=== PATIENT | male | born 1965 | race Two or more races ===

== ENCOUNTER 2020-05-28 19:41 | Inpatient (IN) | payer MEDICAID ==
[~2020-05-28] VITALS: Ht 172.7 cm; Wt 102.2 kg
[~2020-05-28 19:41] MED LIST: ASPI-728 PO
[2020-05-28] MEDS ORDERED: 0.9% SODIUM CHLORIDE 5 ML NEB SOLUTION NEB ONE (19:53)
[2020-05-28] MEDS ORDERED: AMIO200T68 PO (19:57)
[2020-05-28] MEDS ORDERED: LEVO750T68 PO (19:57)
[2020-05-28] MEDS ORDERED: INSLAN SQ (19:57)
[2020-05-28] MEDS ORDERED: PANT40VI14 IVP (19:57)
[2020-05-28] MEDS ORDERED: DIAZ5 PO (19:57)
[2020-05-28] MEDS ORDERED: CHOL100018 PO (19:57)
[2020-05-28] MEDS ORDERED: ASCO500 PO (19:57)
[2020-05-28] MEDS ORDERED: SULF-289 PO (19:57)
[2020-05-28] MEDS ORDERED: METO25 PO (19:57)
[2020-05-28] MEDS ORDERED: DOCU-275 PO (19:57)
[2020-05-28] MEDS ORDERED: IPRATROPIUM BROMIDE 0.5 MG/2.5 ML NEB SOLUTION NEB ONE (20:00)
[2020-05-28] MEDS ORDERED: ALBUTEROL SULFATE 5 MG/ML 20 ML NEB SOLN [BULK] NEB ONE (20:00)
[2020-05-28 20:28] LABS: ABG A-A DIFF O2 574.8 mmHg (10-20.0); ABG CARBOXYHEMOGLOBIN 2.3 % (0.0-1.5); ABG HCO3 40.5 mmol/L (22.0-26.0); ABG METHEMOGLOBIN 0.3 % (0.0-1.5); ABG OXYGEN SATURATION 94.6 % (95.0-98.0); ABG OXYHEMOGLOBIN 92.1 % (94.0-100.0); ABG PCO2 61 mmHg (35-45); ABG PH 7.463 (7.35-7.450); PO2, ARTERIAL BG 75.2 mmHg (84.0-92.0); SOURCE, BLOOD GAS ARTERIAL; TEMPERATURE, FAHRENHEIT, BG 99.8 FAHREN (96.0-98.6)
[2020-05-28 20:29] LABS: O2 DEVICE,BLOOD GAS VENTILATOR (ROOM AIR); PEEP,BG 8 cm H2O; SITE, BLOOD GAS LFT RADIAL; VT, ABG 550 ml
[2020-05-28 20:51] LABS: EOSINOPHILS % (AUTO) 0.9 % (1.0-6.0); HEMOGLOBIN 9.2 g/dL (13.5-17.5); MEAN CORPUSCULAR HEMOGLOBIN 30.2 pg (26.0-34.0); MEAN CORPUSCULAR HGB CONC 31.7 G/dL (31.0-37.0); MEAN CORPUSCULAR VOLUME 95 fL (80-100); MONOCYTES # (AUTO) 0.4 K/uL (0.1-1.0); MONOCYTES % (AUTO) 6.2 % (2.0-9.0); NEUTROPHILS # (AUTO) 4.6 K/uL (1.8-7.7); NEUTROPHILS % (AUTO) 75.9 % (40.0-70.0); PLATELET COUNT (AUTO) 126 K/uL (150-450); RED BLOOD CELL COUNT(AUTO) 3.04 MIL/uL (4.50-5.90); RED CELL DISTRIBUTION WIDTH 18.5 % (11.5-14.5)
[2020-05-28 21:11] LABS: ALANINE AMINOTRANSFERASE 40 U/L (12-78); ALBUMIN 2.3 g/dL (3.4-5.0); ALKALINE PHOSPHATASE 241 U/L (46-116); ASPARTATE AMINOTRANSFERASE 28 U/L (15-37); BILIRUBIN,TOTAL 1.3 mg/dL (0.1-1.0); CALCIUM, TOTAL 8.9 mg/dL (8.8-10.5); CHLORIDE 99 mmol/L (98-107); CREATINE KINASE, TOTAL ONLY 24 U/L (39-308); CREATININE 0.29 mg/dL (0.60-1.30); GLOMERULAR FILTR. RATE CALC > 60 mL/min (>60); GLUCOSE,RANDOM 113 mg/dL (70-110); POTASSIUM 4.5 mmol/L (3.5-5.1); SODIUM SERUM 139 mmol/L (136-145); TOTAL PROTEIN, SERUM 6.2 g/dL (6.4-8.2); UREA NITROGEN, BLOOD 22 mg/dL (7-18)
[2020-05-28 21:18] LABS: ANION GAP 2 mmol/L (8-16); CARBON DIOXIDE 38 mmol/L (22-29)
[2020-05-28 21:19] LABS: B-TYPE NATRIURETIC PEPTIDE 83 pg/mL (0-100)
[2020-05-28] MEDS ORDERED: CefTRIAXone 1 GM/DEXTROSE 50 ML IV ONE (21:30)
[2020-05-28] MEDS ORDERED: AZITHROMYCIN 500 MG/NS 250 ML IV ONE (21:30)
[2020-05-28] MEDS ORDERED: SODIUM CHLORIDE 0.9% 1,000 ML IV ONE (22:15)
[2020-05-28 23:16] LABS: GLUCOSE,POINT OF CARE 108 MG/DL (70-110)
[2020-05-28 23:57] LABS: APPEARANCE,URINE CLOUDY (CLEAR); BILIRUBIN,URINE NEGATIVE (NEGATIVE); GLUCOSE, URINE (UA) NEGATIVE (NEGATIVE); KETONES,URINE 15 mg/dL (NEGATIVE); LEUKOCYTE ESTERASE ,URINE NEGATIVE (NEGATIVE); NITRATE,URINE NEGATIVE (NEGATIVE); OCCULT BLOOD,URINE MODERATE (NEGATIVE); PH,URINE 8.5 (5.0-8.0); PROTEIN,URINE TRACE (NEGATIVE)
[2020-05-29] VITALS (8 sets, daily range): BP systolic 111–140; BP diastolic 64–84
[2020-05-29 00:11] LABS: BACTERIA,URINE Few /HPF (None Seen); WBC,URINE 0-2 /HPF (0-5)
[2020-05-29 00:12] LABS: SQUAMOUS EPITHELIAL CELL,UR Few /LPF (None Seen); YEAST,URINE Many /HPF (None Seen)
[2020-05-29] MEDS ORDERED: ONDANSETRON HCL 4 MG/2 ML VIAL IVP PRN (01:45)
[2020-05-29] MEDS ORDERED: RINGERS LACTATED IV SCH (02:00)
[2020-05-29] MEDS ORDERED: SODIUM CHLORIDE 0.9% 1,000 ML IV ONE (02:15)
[2020-05-29] MEDS ORDERED: ACETAMINOPHEN 650 MG/20.3 ML SOLUTION UDCUP GT ONE (02:15)
[2020-05-29 03:24] LABS: ABG A-A DIFF O2 538.3 mmHg (10-20.0); ABG BASE EXCESS 13.5 mmol/L (-2.0-3.0); ABG CARBOXYHEMOGLOBIN 1.2 % (0.0-1.5); ABG HCO3 35.7 mmol/L (22.0-26.0); ABG METHEMOGLOBIN 0.2 % (0.0-1.5); ABG OXYGEN CONTENT 11.9 mL/dL (15.0-23.0); ABG OXYGEN SATURATION 97.8 % (95.0-98.0); ABG OXYHEMOGLOBIN 96.4 % (94.0-100.0); ABG PCO2 56 mmHg (35-45); ABG PH 7.443 (7.35-7.450); ABG TOTAL HEMOGLOBIN 8.6 G/dL (12.0-18.0); PO2, ARTERIAL BG 118.1 mmHg (84.0-92.0); SOURCE, BLOOD GAS ARTERIAL; TEMPERATURE, FAHRENHEIT, BG 98.8 FAHREN (96.0-98.6)
[2020-05-29 03:25] LABS: O2 DEVICE,BLOOD GAS VENTILATOR (ROOM AIR); PEEP,BG 5 cm H2O; SITE, BLOOD GAS LFT RADIAL; VT, ABG 450 ml
[2020-05-29] MEDS ORDERED: MORPHINE SULFATE 2 MG/ML SYRINGE IVP ONE (05:00)
[2020-05-29] MEDS: ASPIRIN 81 MG CHEWABLE TABLET GT SCH (08:24)
[2020-05-29] MEDS: LEVOFLOXACIN 750 MG TABLET GT SCH (08:24)
[2020-05-29] MEDS: AMIODARONE HCL 200 MG TABLET PO SCH ×3 (08:24→20:54)
[2020-05-29] MEDS: DOCUSATE SODIUM 100 MG/10 ML LIQUID UDCUP GT SCH ×2 (08:24→20:54)
[2020-05-29] MEDS: HEPARIN SODIUM,PORCINE 5,000 UNITS/ML VIAL SQ SCH ×2 (08:24→16:55)
[2020-05-29] MEDS: OMEPRAZOLE 20 MG CAPSULE GT SCH (08:24)
[2020-05-29] MEDS: ASCORBIC ACID 500 MG TABLET GT SCH (08:25)
[2020-05-29] MEDS: SULFAMETHOX/TRIMETH DS 800-160 MG/TABLET PEG SCH ×2 (08:25→20:54)
[2020-05-29] MEDS: CHOLECALCIFEROL (VIT D3) 1,000 UNITS [25 MCG] TABLET GT SCH (08:25)
[2020-05-29] MEDS: DIAZEPAM 5 MG TABLET GT SCH ×3 (08:25→20:54)
[2020-05-29 08:59] LABS: GLUCOSE,POINT OF CARE 115 MG/DL (70-110)
[2020-05-29] MEDS: METOPROLOL TARTRATE 25 MG TABLET GT SCH ×2 (09:00→21:00)
[2020-05-29] MEDS ORDERED: LEVOFLOXACIN 750 MG TABLET PO SCH (09:00)
[2020-05-29] MEDS ORDERED: CHOLECALCIFEROL (VIT D3) 1,000 UNITS [25 MCG] TABLET PO SCH (09:00)
[2020-05-29] MEDS ORDERED: DIAZEPAM 5 MG TABLET PO SCH (09:00)
[2020-05-29] MEDS ORDERED: DOCUSATE SODIUM 100 MG CAPSULE PO SCH (09:00)
[2020-05-29] MEDS ORDERED: ASCORBIC ACID 500 MG TABLET PO SCH (09:00)
[2020-05-29] MEDS ORDERED: SULFAMETHOX/TRIMETH DS 800-160 MG/TABLET PO SCH (09:00)
[2020-05-29] MEDS ORDERED: ASPIRIN 81 MG CHEWABLE TABLET PO SCH (09:00)
[2020-05-29] MEDS: MORPHINE SULFATE 2 MG/ML SYRINGE IVP PRN ×4 (10:38→20:00)
[2020-05-29] MEDS: HYDROCODONE/ACETAMINOPHEN 5-325 MG TABLET PO PRN ×3 (10:39→23:30)
[2020-05-29 17:08] LABS: GLUCOSE,POINT OF CARE 123 MG/DL (70-110)
[2020-05-29] MEDS: INSULIN GLARGINE,HUM.REC.ANLOG 100 UNITS/ML SQ SCH (20:54)
[2020-05-29] MEDS ORDERED: SODIUM CHLORIDE 0.9% 250 ML IV ONE (23:27)
[2020-05-30] VITALS (11 sets, daily range): BP systolic 93–139; BP diastolic 55–86
[2020-05-30 03:07] LABS: GLUCOSE,POINT OF CARE 122 MG/DL (70-110)
[2020-05-30 05:26] LABS: BASOPHILS % (AUTO) 0.4 % (0.0-2.0); EOSINOPHILS % (AUTO) 0.2 % (1.0-6.0); HEMATOCRIT 28.8 % (41-53); HEMOGLOBIN 9.1 g/dL (13.5-17.5); LYMPHOCYTES # (AUTO) 0.8 K/uL (1.0-4.8); LYMPHOCYTES % (AUTO) 7.2 % (22.0-44.0); MEAN CORPUSCULAR HGB CONC 31.6 G/dL (31.0-37.0); MEAN CORPUSCULAR VOLUME 95 fL (80-100); MONOCYTES # (AUTO) 0.5 K/uL (0.1-1.0); MONOCYTES % (AUTO) 4.7 % (2.0-9.0); NEUTROPHILS # (AUTO) 9.9 K/uL (1.8-7.7); PLATELET COUNT (AUTO) 120 K/uL (150-450); RED BLOOD CELL COUNT(AUTO) 3.03 MIL/uL (4.50-5.90); RED CELL DISTRIBUTION WIDTH 18.4 % (11.5-14.5)
[2020-05-30] MEDS: MORPHINE SULFATE 2 MG/ML SYRINGE IVP PRN ×6 (05:30→22:30)
[2020-05-30 05:35] LABS: ANION GAP 6 mmol/L (8-16); CALCIUM, TOTAL 8.7 mg/dL (8.8-10.5); CARBON DIOXIDE 34 mmol/L (22-29); CHLORIDE 97 mmol/L (98-107); CREATININE 0.25 mg/dL (0.60-1.30); GLOMERULAR FILTR. RATE CALC > 60 mL/min (>60); GLUCOSE,RANDOM 119 mg/dL (70-110); POTASSIUM 4.4 mmol/L (3.5-5.1); SODIUM SERUM 137 mmol/L (136-145); UREA NITROGEN, BLOOD 13 mg/dL (7-18)
[2020-05-30 05:47] LABS: NEUTROPHILS % (AUTO) 87.5 % (40.0-70.0)
[2020-05-30] MEDS: HYDROCODONE/ACETAMINOPHEN 5-325 MG TABLET PO PRN ×4 (06:30→17:41)
[2020-05-30 06:55] LABS: GLUCOSE,POINT OF CARE 122 MG/DL (70-110)
[2020-05-30] MEDS: ASPIRIN 81 MG CHEWABLE TABLET GT SCH (07:46)
[2020-05-30] MEDS: CHOLECALCIFEROL (VIT D3) 1,000 UNITS [25 MCG] TABLET GT SCH (07:46)
[2020-05-30] MEDS: DOCUSATE SODIUM 100 MG/10 ML LIQUID UDCUP GT SCH ×2 (07:46→20:20)
[2020-05-30] MEDS: LEVOFLOXACIN 750 MG TABLET GT SCH (07:46)
[2020-05-30] MEDS: METOPROLOL TARTRATE 25 MG TABLET GT SCH ×2 (07:47→20:19)
[2020-05-30] MEDS: HEPARIN SODIUM,PORCINE 5,000 UNITS/ML VIAL SQ SCH ×4 (07:47→23:56)
[2020-05-30] MEDS: OMEPRAZOLE 20 MG CAPSULE GT SCH (07:47)
[2020-05-30] MEDS: ASCORBIC ACID 500 MG TABLET GT SCH (07:47)
[2020-05-30] MEDS: DIAZEPAM 5 MG TABLET GT SCH ×3 (07:47→20:20)
[2020-05-30] MEDS: SULFAMETHOX/TRIMETH DS 800-160 MG/TABLET PEG SCH ×2 (07:47→20:19)
[2020-05-30] MEDS: AMIODARONE HCL 200 MG TABLET PO SCH ×3 (07:47→20:19)
[2020-05-30 09:03] LABS: GLUCOSE,POINT OF CARE 111 MG/DL (70-110)
[2020-05-30 17:29] LABS: ABG A-A DIFF O2 294.8 mmHg (10-20.0); ABG BASE EXCESS 10.3 mmol/L (-2.0-3.0); ABG CARBOXYHEMOGLOBIN 2.4 % (0.0-1.5); ABG HCO3 32.3 mmol/L (22.0-26.0); ABG METHEMOGLOBIN 0.3 % (0.0-1.5); ABG OXYGEN CONTENT 12.3 mL/dL (15.0-23.0); ABG OXYGEN SATURATION 89.4 % (95.0-98.0); ABG PCO2 64 mmHg (35-45); ABG PH 7.363 (7.35-7.450); PO2, ARTERIAL BG 61.4 mmHg (84.0-92.0); SOURCE, BLOOD GAS ARTERIAL; TEMPERATURE, FAHRENHEIT, BG 99.6 FAHREN (96.0-98.6)
[2020-05-30 17:32] LABS: O2 DEVICE,BLOOD GAS VENTILATOR (ROOM AIR); PEEP,BG 5 cm H2O; SITE, BLOOD GAS LFT RADIAL; VT, ABG 450 ml
[2020-05-30 17:50] LABS: GLUCOSE,POINT OF CARE 118 MG/DL (70-110)
[2020-05-30 17:50] LABS: GLUCOSE,POINT OF CARE 102 MG/DL (70-110)
[2020-05-30] MEDS: INSULIN GLARGINE,HUM.REC.ANLOG 100 UNITS/ML SQ SCH (21:00)
[2020-05-31] VITALS (9 sets, daily range): BP systolic 87–107; BP diastolic 54–65
[2020-05-31 00:13] LABS: GLUCOSE,POINT OF CARE 148 MG/DL (70-110)
[2020-05-31] MEDS ORDERED: SODIUM CHLORIDE 0.9% 250 ML IV ONE (00:54)
[2020-05-31] MEDS: HYDROCODONE/ACETAMINOPHEN 5-325 MG TABLET PO PRN ×3 (01:30→15:39)
[2020-05-31 04:51] LABS: GLUCOSE,POINT OF CARE 145 MG/DL (70-110)
[2020-05-31] MEDS: MORPHINE SULFATE 2 MG/ML SYRINGE IVP PRN ×2 (06:50→10:26)
[2020-05-31 07:14] LABS: GLUCOSE,POINT OF CARE 143 MG/DL (70-110)
[2020-05-31] MEDS: DOCUSATE SODIUM 100 MG/10 ML LIQUID UDCUP GT SCH ×2 (08:05→20:29)
[2020-05-31] MEDS: LEVOFLOXACIN 750 MG TABLET GT SCH (08:06)
[2020-05-31] MEDS: ZINC SULFATE 220 MG CAPSULE PO SCH (08:06)
[2020-05-31] MEDS: HEPARIN SODIUM,PORCINE 5,000 UNITS/ML VIAL SQ SCH ×3 (08:06→23:11)
[2020-05-31] MEDS: DIAZEPAM 5 MG TABLET GT SCH ×3 (08:06→20:29)
[2020-05-31] MEDS: MULTIVITAMINS WITH MINERALS, THERAPEUTIC TABLET PO SCH (08:06)
[2020-05-31] MEDS: ASPIRIN 81 MG CHEWABLE TABLET GT SCH (08:06)
[2020-05-31] MEDS: AMIODARONE HCL 200 MG TABLET PO SCH ×3 (08:06→20:29)
[2020-05-31] MEDS: SULFAMETHOX/TRIMETH DS 800-160 MG/TABLET PEG SCH ×2 (08:06→20:29)
[2020-05-31] MEDS: ASCORBIC ACID 500 MG TABLET GT SCH (08:06)
[2020-05-31] MEDS: CHOLECALCIFEROL (VIT D3) 1,000 UNITS [25 MCG] TABLET GT SCH (08:06)
[2020-05-31] MEDS: OMEPRAZOLE 20 MG CAPSULE GT SCH (08:07)
[2020-05-31 08:11] LABS: ABG A-A DIFF O2 290.7 mmHg (10-20.0); ABG BASE EXCESS 10.1 mmol/L (-2.0-3.0); ABG CARBOXYHEMOGLOBIN 2.4 % (0.0-1.5); ABG METHEMOGLOBIN 0.3 % (0.0-1.5); ABG OXYGEN CONTENT 13.4 mL/dL (15.0-23.0); ABG OXYGEN SATURATION 90.3 % (95.0-98.0); ABG OXYHEMOGLOBIN 87.9 % (94.0-100.0); ABG PCO2 64 mmHg (35-45); ABG PH 7.363 (7.35-7.450); ABG TOTAL HEMOGLOBIN 10.8 G/dL (12.0-18.0); PO2, ARTERIAL BG 65.9 mmHg (84.0-92.0); SOURCE, BLOOD GAS ARTERIAL; TEMPERATURE, FAHRENHEIT, BG 99.7 FAHREN (96.0-98.6)
[2020-05-31 08:12] LABS: O2 DEVICE,BLOOD GAS VENTILATOR (ROOM AIR); SITE, BLOOD GAS LFT RADIAL; VT, ABG 450 ml
[2020-05-31 08:13] LABS: PEEP,BG 5 cm H2O
[2020-05-31] MEDS: METOPROLOL TARTRATE 25 MG TABLET GT SCH ×2 (09:00→20:30)
[2020-05-31] MEDS ORDERED: DEXTROSE 50%-WATER 25 GM/50 ML SYRINGE IVP PRN (10:00)
[2020-05-31] MEDS: SODIUM CHLORIDE 0.9% 1,000 ML IV SCH ×2 (10:04→21:52)
[2020-05-31 10:45] LABS: BASOPHILS % (AUTO) 0.3 % (0.0-2.0); EOSINOPHILS % (AUTO) 0.5 % (1.0-6.0); HEMATOCRIT 27.7 % (41-53); HEMOGLOBIN 8.9 g/dL (13.5-17.5); LYMPHOCYTES # (AUTO) 0.9 K/uL (1.0-4.8); MEAN CORPUSCULAR HEMOGLOBIN 30.1 pg (26.0-34.0); MEAN CORPUSCULAR VOLUME 94 fL (80-100); MONOCYTES # (AUTO) 0.5 K/uL (0.1-1.0); MONOCYTES % (AUTO) 4.4 % (2.0-9.0); NEUTROPHILS # (AUTO) 10.9 K/uL (1.8-7.7); PLATELET COUNT (AUTO) 126 K/uL (150-450); RED BLOOD CELL COUNT(AUTO) 2.94 MIL/uL (4.50-5.90); RED CELL DISTRIBUTION WIDTH 18.3 % (11.5-14.5)
[2020-05-31 10:51] LABS: NEUTROPHILS % (AUTO) 87.8 % (40.0-70.0)
[2020-05-31 11:24] LABS: ALANINE AMINOTRANSFERASE 33 U/L (12-78); ALBUMIN 1.9 g/dL (3.4-5.0); ALKALINE PHOSPHATASE 277 U/L (46-116); ANION GAP -1 mmol/L (8-16); ASPARTATE AMINOTRANSFERASE 38 U/L (15-37); BILIRUBIN,TOTAL 1.7 mg/dL (0.1-1.0); CALCIUM, TOTAL 8.6 mg/dL (8.8-10.5); CARBON DIOXIDE 37 mmol/L (22-29); CHLORIDE 102 mmol/L (98-107); CREATININE 0.35 mg/dL (0.60-1.30); GLOMERULAR FILTR. RATE CALC > 60 mL/min (>60); GLUCOSE,RANDOM 153 mg/dL (70-110); POTASSIUM 4.5 mmol/L (3.5-5.1); SODIUM SERUM 138 mmol/L (136-145); TOTAL PROTEIN, SERUM 6.2 g/dL (6.4-8.2); UREA NITROGEN, BLOOD 17 mg/dL (7-18)
[2020-05-31] MEDS: LORazepam 2 MG/ML VIAL IVP PRN (11:44)
[2020-05-31] MEDS: INSULIN LISPRO 100 UNITS/ML SQ PRN ×2 (11:54→23:37)
[2020-05-31] MEDS: FentaNYL 12 MCG/HOUR PATCH TD SCH (17:46)
[2020-05-31] MEDS: INSULIN GLARGINE,HUM.REC.ANLOG 100 UNITS/ML SQ SCH (20:42)
[2020-06-01] VITALS (8 sets, daily range): BP systolic 87–112; BP diastolic 52–62
[2020-06-01] MEDS: LORazepam 2 MG/ML VIAL IVP PRN ×3 (00:11→12:14)
[2020-06-01] MEDS: MORPHINE SULFATE 2 MG/ML SYRINGE IVP PRN ×3 (01:38→22:07)
[2020-06-01] MEDS: INSULIN LISPRO 100 UNITS/ML SQ PRN ×4 (05:21→23:31)
[2020-06-01 05:44] LABS: BASOPHILS % (AUTO) 0.4 % (0.0-2.0); EOSINOPHILS % (AUTO) 0.9 % (1.0-6.0); HEMATOCRIT 26.2 % (41-53); HEMOGLOBIN 8.6 g/dL (13.5-17.5); LYMPHOCYTES # (AUTO) 0.9 K/uL (1.0-4.8); LYMPHOCYTES % (AUTO) 11.4 % (22.0-44.0); MEAN CORPUSCULAR HGB CONC 32.9 G/dL (31.0-37.0); MEAN CORPUSCULAR VOLUME 94 fL (80-100); MONOCYTES # (AUTO) 0.5 K/uL (0.1-1.0); MONOCYTES % (AUTO) 5.8 % (2.0-9.0); NEUTROPHILS # (AUTO) 6.4 K/uL (1.8-7.7); NEUTROPHILS % (AUTO) 81.5 % (40.0-70.0); PLATELET COUNT (AUTO) 110 K/uL (150-450); RED BLOOD CELL COUNT(AUTO) 2.79 MIL/uL (4.50-5.90); RED CELL DISTRIBUTION WIDTH 18.4 % (11.5-14.5)
[2020-06-01 06:01] LABS: ALANINE AMINOTRANSFERASE 36 U/L (12-78); ALBUMIN 1.7 g/dL (3.4-5.0); ALKALINE PHOSPHATASE 297 U/L (46-116); ANION GAP 0 mmol/L (8-16); ASPARTATE AMINOTRANSFERASE 38 U/L (15-37); BILIRUBIN,TOTAL 1.2 mg/dL (0.1-1.0); CALCIUM, TOTAL 8.5 mg/dL (8.8-10.5); CARBON DIOXIDE 35 mmol/L (22-29); CHLORIDE 100 mmol/L (98-107); CREATININE 0.27 mg/dL (0.60-1.30); GLOMERULAR FILTR. RATE CALC > 60 mL/min (>60); GLUCOSE,RANDOM 150 mg/dL (70-110); POTASSIUM 4.7 mmol/L (3.5-5.1); SODIUM SERUM 135 mmol/L (136-145)
[2020-06-01 06:08] LABS: UREA NITROGEN, BLOOD 17 mg/dL (7-18)
[2020-06-01] MEDS: DIAZEPAM 5 MG TABLET GT SCH ×3 (07:54→20:07)
[2020-06-01] MEDS: AMIODARONE HCL 200 MG TABLET PO SCH ×3 (07:54→20:07)
[2020-06-01] MEDS: OMEPRAZOLE 20 MG CAPSULE GT SCH (08:42)
[2020-06-01] MEDS: ZINC SULFATE 220 MG CAPSULE PO SCH (08:42)
[2020-06-01] MEDS: SULFAMETHOX/TRIMETH DS 800-160 MG/TABLET PEG SCH ×2 (08:42→20:07)
[2020-06-01] MEDS: HEPARIN SODIUM,PORCINE 5,000 UNITS/ML VIAL SQ SCH ×3 (08:42→23:17)
[2020-06-01] MEDS: CHOLECALCIFEROL (VIT D3) 1,000 UNITS [25 MCG] TABLET GT SCH (08:42)
[2020-06-01] MEDS: DOCUSATE SODIUM 100 MG/10 ML LIQUID UDCUP GT SCH ×2 (08:42→20:06)
[2020-06-01] MEDS: ASPIRIN 81 MG CHEWABLE TABLET GT SCH (08:42)
[2020-06-01] MEDS: ASCORBIC ACID 500 MG TABLET GT SCH (08:43)
[2020-06-01] MEDS: HYDROCODONE/ACETAMINOPHEN 5-325 MG TABLET PO PRN (08:43)
[2020-06-01] MEDS: MULTIVITAMINS WITH MINERALS, THERAPEUTIC TABLET PO SCH (08:43)
[2020-06-01] MEDS: LEVOFLOXACIN 750 MG TABLET GT SCH (08:43)
[2020-06-01] MEDS: METOPROLOL TARTRATE 25 MG TABLET GT SCH ×2 (09:00→20:07)
[2020-06-01] MEDS: SODIUM CHLORIDE 0.9% 1,000 ML IV SCH ×2 (10:47→21:52)
[2020-06-01] MEDS: INSULIN GLARGINE,HUM.REC.ANLOG 100 UNITS/ML SQ SCH (20:09)
[2020-06-02] VITALS: BP 105/62
[2020-06-02] MEDS: LORazepam 2 MG/ML VIAL IVP PRN ×4 (00:05→16:30)
[2020-06-02] MEDS: MORPHINE SULFATE 2 MG/ML SYRINGE IVP PRN ×2 (03:35→08:33)
[2020-06-02 04:00] VITALS: BP 105/58
[2020-06-02] MEDS: INSULIN LISPRO 100 UNITS/ML SQ PRN ×2 (05:18→18:14)
[2020-06-02 05:45] LABS: BASOPHILS % (AUTO) 0.4 % (0.0-2.0); EOSINOPHILS % (AUTO) 1.1 % (1.0-6.0); HEMATOCRIT 26.7 % (41-53); HEMOGLOBIN 8.7 g/dL (13.5-17.5); LYMPHOCYTES # (AUTO) 0.6 K/uL (1.0-4.8); LYMPHOCYTES % (AUTO) 9.2 % (22.0-44.0); MEAN CORPUSCULAR HEMOGLOBIN 30.4 pg (26.0-34.0); MEAN CORPUSCULAR HGB CONC 32.5 G/dL (31.0-37.0); MEAN CORPUSCULAR VOLUME 94 fL (80-100); MONOCYTES # (AUTO) 0.4 K/uL (0.1-1.0); MONOCYTES % (AUTO) 5.7 % (2.0-9.0); NEUTROPHILS # (AUTO) 5.5 K/uL (1.8-7.7); NEUTROPHILS % (AUTO) 83.6 % (40.0-70.0); PLATELET COUNT (AUTO) 128 K/uL (150-450); RED BLOOD CELL COUNT(AUTO) 2.84 MIL/uL (4.50-5.90); RED CELL DISTRIBUTION WIDTH 18.6 % (11.5-14.5)
[2020-06-02 05:59] LABS: ALANINE AMINOTRANSFERASE 36 U/L (12-78); ALBUMIN 1.7 g/dL (3.4-5.0); ALKALINE PHOSPHATASE 362 U/L (46-116); ANION GAP 4 mmol/L (8-16); ASPARTATE AMINOTRANSFERASE 44 U/L (15-37); CALCIUM, TOTAL 8.6 mg/dL (8.8-10.5); CARBON DIOXIDE 34 mmol/L (22-29); CHLORIDE 99 mmol/L (98-107); CREATININE 0.25 mg/dL (0.60-1.30); GLOMERULAR FILTR. RATE CALC > 60 mL/min (>60); GLUCOSE,RANDOM 180 mg/dL (70-110); POTASSIUM 4.9 mmol/L (3.5-5.1); SODIUM SERUM 137 mmol/L (136-145); TOTAL PROTEIN, SERUM 6.3 g/dL (6.4-8.2); UREA NITROGEN, BLOOD 14 mg/dL (7-18)
[2020-06-02 08:00] VITALS: BP 115/68
[2020-06-02] MEDS: OMEPRAZOLE 20 MG CAPSULE GT SCH (08:15)
[2020-06-02] MEDS: SULFAMETHOX/TRIMETH DS 800-160 MG/TABLET PEG SCH ×2 (08:15→21:45)
[2020-06-02] MEDS: DIAZEPAM 5 MG TABLET GT SCH ×3 (08:15→21:45)
[2020-06-02] MEDS: METOPROLOL TARTRATE 25 MG TABLET GT SCH ×2 (08:15→21:00)
[2020-06-02] MEDS: DOCUSATE SODIUM 100 MG/10 ML LIQUID UDCUP GT SCH ×2 (08:16→21:45)
[2020-06-02] MEDS: AMIODARONE HCL 200 MG TABLET PO SCH ×3 (08:16→21:45)
[2020-06-02] MEDS: ASCORBIC ACID 500 MG TABLET GT SCH (08:16)
[2020-06-02] MEDS: ASPIRIN 81 MG CHEWABLE TABLET GT SCH (08:16)
[2020-06-02] MEDS: MULTIVITAMINS WITH MINERALS, THERAPEUTIC TABLET PO SCH (08:16)
[2020-06-02] MEDS: ZINC SULFATE 220 MG CAPSULE PO SCH (08:16)
[2020-06-02] MEDS: HEPARIN SODIUM,PORCINE 5,000 UNITS/ML VIAL SQ SCH ×2 (08:16→15:32)
[2020-06-02] MEDS: CHOLECALCIFEROL (VIT D3) 1,000 UNITS [25 MCG] TABLET GT SCH (08:16)
[2020-06-02] MEDS: LEVOFLOXACIN 750 MG TABLET GT SCH (08:17)
[2020-06-02] MEDS: HYDROCODONE/ACETAMINOPHEN 5-325 MG TABLET PO PRN (09:14)
[2020-06-02 12:00] VITALS: BP 110/64
[2020-06-02] MEDS: SODIUM CHLORIDE 0.9% 1,000 ML IV SCH (14:51)
[2020-06-02 16:00] VITALS: BP 103/0
[2020-06-02 20:00] VITALS: BP 105/63
[2020-06-02] MEDS: INSULIN GLARGINE,HUM.REC.ANLOG 100 UNITS/ML SQ SCH (21:58)
[2020-06-03] VITALS (11 sets, daily range): BP systolic 84–117; BP diastolic 50–68
[2020-06-03] MEDS: HEPARIN SODIUM,PORCINE 5,000 UNITS/ML VIAL SQ SCH ×4 (00:01→23:39)
[2020-06-03] MEDS: INSULIN LISPRO 100 UNITS/ML SQ PRN (00:02)
[2020-06-03] MEDS: LORazepam 2 MG/ML VIAL IVP PRN ×3 (00:54→15:38)
[2020-06-03] MEDS: SODIUM CHLORIDE 0.9% 1,000 ML IV SCH ×2 (04:53→17:14)
[2020-06-03 05:28] LABS: BASOPHILS % (AUTO) 0.6 % (0.0-2.0); EOSINOPHILS % (AUTO) 1.3 % (1.0-6.0); HEMOGLOBIN 8.1 g/dL (13.5-17.5); LYMPHOCYTES # (AUTO) 0.8 K/uL (1.0-4.8); MEAN CORPUSCULAR HEMOGLOBIN 30.2 pg (26.0-34.0); MEAN CORPUSCULAR HGB CONC 32.4 G/dL (31.0-37.0); MEAN CORPUSCULAR VOLUME 93 fL (80-100); MONOCYTES # (AUTO) 0.4 K/uL (0.1-1.0); MONOCYTES % (AUTO) 7.9 % (2.0-9.0); NEUTROPHILS # (AUTO) 4.2 K/uL (1.8-7.7); NEUTROPHILS % (AUTO) 76.2 % (40.0-70.0); PLATELET COUNT (AUTO) 130 K/uL (150-450); RED BLOOD CELL COUNT(AUTO) 2.68 MIL/uL (4.50-5.90); RED CELL DISTRIBUTION WIDTH 18.4 % (11.5-14.5)
[2020-06-03 05:44] LABS: ANION GAP 1 mmol/L (8-16); CALCIUM, TOTAL 8.4 mg/dL (8.8-10.5); CARBON DIOXIDE 36 mmol/L (22-29); CHLORIDE 101 mmol/L (98-107); CREATININE 0.24 mg/dL (0.60-1.30); GLOMERULAR FILTR. RATE CALC > 60 mL/min (>60); GLUCOSE,RANDOM 171 mg/dL (70-110); POTASSIUM 4.9 mmol/L (3.5-5.1); SODIUM SERUM 138 mmol/L (136-145); UREA NITROGEN, BLOOD 14 mg/dL (7-18)
[2020-06-03] MEDS: MORPHINE SULFATE 2 MG/ML SYRINGE IVP PRN ×6 (07:35→22:24)
[2020-06-03] MEDS: SULFAMETHOX/TRIMETH DS 800-160 MG/TABLET PEG SCH ×2 (08:27→20:00)
[2020-06-03] MEDS: ASPIRIN 81 MG CHEWABLE TABLET GT SCH (08:27)
[2020-06-03] MEDS: CHOLECALCIFEROL (VIT D3) 1,000 UNITS [25 MCG] TABLET GT SCH (08:27)
[2020-06-03] MEDS: DOCUSATE SODIUM 100 MG/10 ML LIQUID UDCUP GT SCH ×2 (08:27→20:01)
[2020-06-03] MEDS: LEVOFLOXACIN 750 MG TABLET GT SCH (08:28)
[2020-06-03] MEDS: OMEPRAZOLE 20 MG CAPSULE GT SCH (08:28)
[2020-06-03] MEDS: AMIODARONE HCL 200 MG TABLET PO SCH ×3 (08:28→20:00)
[2020-06-03] MEDS: ZINC SULFATE 220 MG CAPSULE PO SCH (08:28)
[2020-06-03] MEDS: MULTIVITAMINS WITH MINERALS, THERAPEUTIC TABLET PO SCH (08:29)
[2020-06-03] MEDS: ASCORBIC ACID 500 MG TABLET GT SCH (08:29)
[2020-06-03] MEDS: DIAZEPAM 5 MG TABLET GT SCH ×3 (08:29→20:01)
[2020-06-03] MEDS: METOPROLOL TARTRATE 25 MG TABLET GT SCH ×2 (08:29→20:00)
[2020-06-03] MEDS: ACETAMINOPHEN 325 MG TABLET PO PRN (09:34)
[2020-06-03 10:54] LABS: ABG A-A DIFF O2 368.9 mmHg (10-20.0); ABG BASE EXCESS 9.3 mmol/L (-2.0-3.0); ABG HCO3 31.9 mmol/L (22.0-26.0); ABG METHEMOGLOBIN 0.3 % (0.0-1.5); ABG OXYGEN CONTENT 10.9 mL/dL (15.0-23.0); ABG OXYGEN SATURATION 91.6 % (95.0-98.0); ABG OXYHEMOGLOBIN 89.5 % (94.0-100.0); ABG PCO2 55 mmHg (35-45); ABG PH 7.406 (7.35-7.450); ABG TOTAL HEMOGLOBIN 8.6 G/dL (12.0-18.0); PO2, ARTERIAL BG 69.5 mmHg (84.0-92.0); SOURCE, BLOOD GAS ARTERIAL; TEMPERATURE, FAHRENHEIT, BG 99.6 FAHREN (96.0-98.6)
[2020-06-03 10:56] LABS: O2 DEVICE,BLOOD GAS VENTILATOR (ROOM AIR); SITE, BLOOD GAS LFT RADIAL; VENT MODE, BG SIMV (ROOM AIR); VT, ABG 450 ml
[2020-06-03 10:57] LABS: PEEP,BG 5 cm H2O; PRESSURE SUPPORT, BG 15 cm H2O; SPONTANEOUS VT, BG 399 ml
[2020-06-03] MEDS: FentaNYL 12 MCG/HOUR PATCH TD SCH (16:25)
[2020-06-03] MEDS: HYDROCODONE/ACETAMINOPHEN 5-325 MG TABLET PO PRN (20:00)
[2020-06-03] MEDS: INSULIN GLARGINE,HUM.REC.ANLOG 100 UNITS/ML SQ SCH (20:02)
[2020-06-04] VITALS (7 sets, daily range): BP systolic 99–120; BP diastolic 59–73
[2020-06-04] MEDS: MORPHINE SULFATE 2 MG/ML SYRINGE IVP PRN ×4 (03:19→17:49)
[2020-06-04] MEDS: SODIUM CHLORIDE 0.9% 1,000 ML IV SCH ×2 (03:28→19:40)
[2020-06-04] MEDS: HYDROCODONE/ACETAMINOPHEN 5-325 MG TABLET PO PRN ×5 (04:28→20:36)
[2020-06-04] MEDS: LORazepam 2 MG/ML VIAL IVP PRN (04:54)
[2020-06-04] MEDS: INSULIN LISPRO 100 UNITS/ML SQ PRN ×3 (05:14→17:33)
[2020-06-04] MEDS: DOCUSATE SODIUM 100 MG/10 ML LIQUID UDCUP GT SCH ×2 (08:12→20:38)
[2020-06-04] MEDS: HEPARIN SODIUM,PORCINE 5,000 UNITS/ML VIAL SQ SCH ×2 (08:12→16:01)
[2020-06-04] MEDS: SULFAMETHOX/TRIMETH DS 800-160 MG/TABLET PEG SCH ×2 (08:12→20:36)
[2020-06-04] MEDS: LEVOFLOXACIN 750 MG TABLET GT SCH (08:12)
[2020-06-04] MEDS: DIAZEPAM 5 MG TABLET GT SCH ×3 (08:13→20:34)
[2020-06-04] MEDS: MULTIVITAMINS WITH MINERALS, THERAPEUTIC TABLET PO SCH (08:13)
[2020-06-04] MEDS: OMEPRAZOLE 20 MG CAPSULE GT SCH (08:13)
[2020-06-04] MEDS: CHOLECALCIFEROL (VIT D3) 1,000 UNITS [25 MCG] TABLET GT SCH (08:13)
[2020-06-04] MEDS: ASPIRIN 81 MG CHEWABLE TABLET GT SCH (08:13)
[2020-06-04] MEDS: AMIODARONE HCL 200 MG TABLET PO SCH ×3 (08:14→20:34)
[2020-06-04] MEDS: ASCORBIC ACID 500 MG TABLET GT SCH (08:14)
[2020-06-04] MEDS: ZINC SULFATE 220 MG CAPSULE PO SCH (08:14)
[2020-06-04] MEDS: METOPROLOL TARTRATE 25 MG TABLET GT SCH ×2 (08:14→20:34)
[2020-06-04] MEDS: INSULIN GLARGINE,HUM.REC.ANLOG 100 UNITS/ML SQ SCH (20:38)
[2020-06-05] VITALS: BP 119/71
[2020-06-05] MEDS: HEPARIN SODIUM,PORCINE 5,000 UNITS/ML VIAL SQ SCH ×3 (00:18→15:47)
[2020-06-05] MEDS: INSULIN LISPRO 100 UNITS/ML SQ PRN ×4 (00:19→12:26)
[2020-06-05] MEDS: HYDROCODONE/ACETAMINOPHEN 5-325 MG TABLET PO PRN ×3 (00:41→18:13)
[2020-06-05] MEDS: MORPHINE SULFATE 2 MG/ML SYRINGE IVP PRN ×4 (03:04→22:38)
[2020-06-05 04:00] VITALS: BP 116/68
[2020-06-05 08:00] VITALS: BP 127/81
[2020-06-05 08:04] LABS: BASOPHILS % (AUTO) 0.5 % (0.0-2.0); EOSINOPHILS % (AUTO) 1.1 % (1.0-6.0); HEMATOCRIT 27.6 % (41-53); HEMOGLOBIN 8.7 g/dL (13.5-17.5); LYMPHOCYTES # (AUTO) 1.3 K/uL (1.0-4.8); LYMPHOCYTES % (AUTO) 12.1 % (22.0-44.0); MEAN CORPUSCULAR HEMOGLOBIN 29.8 pg (26.0-34.0); MEAN CORPUSCULAR HGB CONC 31.6 G/dL (31.0-37.0); MEAN CORPUSCULAR VOLUME 94 fL (80-100); MONOCYTES # (AUTO) 0.7 K/uL (0.1-1.0); NEUTROPHILS # (AUTO) 8.5 K/uL (1.8-7.7); NEUTROPHILS % (AUTO) 79.3 % (40.0-70.0); PLATELET COUNT (AUTO) 249 K/uL (150-450); RED BLOOD CELL COUNT(AUTO) 2.92 MIL/uL (4.50-5.90); RED CELL DISTRIBUTION WIDTH 18.2 % (11.5-14.5)
[2020-06-05 08:18] LABS: ALANINE AMINOTRANSFERASE 37 U/L (12-78); ALBUMIN 1.8 g/dL (3.4-5.0); ALKALINE PHOSPHATASE 430 U/L (46-116); ANION GAP -3 mmol/L (8-16); ASPARTATE AMINOTRANSFERASE 40 U/L (15-37); BILIRUBIN,TOTAL 0.7 mg/dL (0.1-1.0); CALCIUM, TOTAL 8.4 mg/dL (8.8-10.5); CHLORIDE 104 mmol/L (98-107); CREATININE 0.27 mg/dL (0.60-1.30); GLOMERULAR FILTR. RATE CALC > 60 mL/min (>60); GLUCOSE,RANDOM 231 mg/dL (70-110); POTASSIUM 5.5 mmol/L (3.5-5.1); SODIUM SERUM 142 mmol/L (136-145); TOTAL PROTEIN, SERUM 7.1 g/dL (6.4-8.2); UREA NITROGEN, BLOOD 16 mg/dL (7-18)
[2020-06-05 08:21] LABS: CARBON DIOXIDE 41 mmol/L (22-29)
[2020-06-05 08:22] LABS: GLUCOSE,POINT OF CARE 153 MG/DL (70-110)
[2020-06-05 08:22] LABS: GLUCOSE,POINT OF CARE 153 MG/DL (70-110)
[2020-06-05 08:22] LABS: GLUCOSE,POINT OF CARE 146 MG/DL (70-110)
[2020-06-05 08:22] LABS: GLUCOSE,POINT OF CARE 144 MG/DL (70-110)
[2020-06-05 08:22] LABS: GLUCOSE,POINT OF CARE 128 MG/DL (70-110)
[2020-06-05 08:23] LABS: GLUCOSE,POINT OF CARE 150 MG/DL (70-110)
[2020-06-05 08:23] LABS: GLUCOSE,POINT OF CARE 163 MG/DL (70-110)
[2020-06-05 08:23] LABS: GLUCOSE,POINT OF CARE 140 MG/DL (70-110)
[2020-06-05 08:23] LABS: GLUCOSE,POINT OF CARE 166 MG/DL (70-110)
[2020-06-05 08:23] LABS: GLUCOSE,POINT OF CARE 164 MG/DL (70-110)
[2020-06-05 08:23] LABS: GLUCOSE,POINT OF CARE 176 MG/DL (70-110)
[2020-06-05 08:23] LABS: GLUCOSE,POINT OF CARE 150 MG/DL (70-110)
[2020-06-05 08:23] LABS: GLUCOSE,POINT OF CARE 168 MG/DL (70-110)
[2020-06-05 08:23] LABS: GLUCOSE,POINT OF CARE 168 MG/DL (70-110)
[2020-06-05 08:23] LABS: GLUCOSE,POINT OF CARE 149 MG/DL (70-110)
[2020-06-05 08:23] LABS: GLUCOSE,POINT OF CARE 141 MG/DL (70-110)
[2020-06-05 08:23] LABS: GLUCOSE,POINT OF CARE 160 MG/DL (70-110)
[2020-06-05 08:23] LABS: GLUCOSE,POINT OF CARE 186 MG/DL (70-110)
[2020-06-05] MEDS: AMIODARONE HCL 200 MG TABLET PO SCH ×3 (08:23→20:09)
[2020-06-05] MEDS: LEVOFLOXACIN 750 MG TABLET GT SCH (08:23)
[2020-06-05] MEDS: ASCORBIC ACID 500 MG TABLET GT SCH (08:23)
[2020-06-05] MEDS: OMEPRAZOLE 20 MG CAPSULE GT SCH (08:23)
[2020-06-05] MEDS: ZINC SULFATE 220 MG CAPSULE PO SCH (08:23)
[2020-06-05] MEDS: SULFAMETHOX/TRIMETH DS 800-160 MG/TABLET PEG SCH ×2 (08:23→20:09)
[2020-06-05] MEDS: DOCUSATE SODIUM 100 MG/10 ML LIQUID UDCUP GT SCH ×2 (08:23→20:09)
[2020-06-05] MEDS: DIAZEPAM 5 MG TABLET GT SCH ×3 (08:23→20:08)
[2020-06-05 08:24] LABS: GLUCOSE,POINT OF CARE 182 MG/DL (70-110)
[2020-06-05 08:24] LABS: GLUCOSE,POINT OF CARE 178 MG/DL (70-110)
[2020-06-05] MEDS: METOPROLOL TARTRATE 25 MG TABLET GT SCH ×2 (08:24→20:08)
[2020-06-05] MEDS: MULTIVITAMINS WITH MINERALS, THERAPEUTIC TABLET PO SCH (08:24)
[2020-06-05] MEDS: ASPIRIN 81 MG CHEWABLE TABLET GT SCH (08:24)
[2020-06-05] MEDS: CHOLECALCIFEROL (VIT D3) 1,000 UNITS [25 MCG] TABLET GT SCH (08:24)
[2020-06-05 08:25] LABS: GLUCOSE,POINT OF CARE 186 MG/DL (70-110)
[2020-06-05 08:25] LABS: GLUCOSE,POINT OF CARE 192 MG/DL (70-110)
[2020-06-05 08:26] LABS: GLUCOSE,POINT OF CARE 221 MG/DL (70-110)
[2020-06-05 09:27] LABS: GLUCOSE,POINT OF CARE 231 MG/DL (70-110)
[2020-06-05] MEDS: SODIUM CHLORIDE 0.9% 1,000 ML IV SCH ×2 (09:50→22:38)
[2020-06-05] MEDS: ACETAMINOPHEN 325 MG TABLET PO PRN (10:19)
[2020-06-05 12:00] VITALS: BP 128/78
[2020-06-05 12:31] LABS: GLUCOSE,POINT OF CARE 182 MG/DL (70-110)
[2020-06-05 16:00] VITALS: BP 124/78
[2020-06-05 20:00] VITALS: BP 112/60
[2020-06-05] MEDS: INSULIN GLARGINE,HUM.REC.ANLOG 100 UNITS/ML SQ SCH (20:09)
[2020-06-05 22:10] LABS: GLUCOSE,POINT OF CARE 210 MG/DL (70-110)
[2020-06-06] VITALS: BP 118/69
[2020-06-06] MEDS: HEPARIN SODIUM,PORCINE 5,000 UNITS/ML VIAL SQ SCH ×3 (00:04→16:19)
[2020-06-06] MEDS: HYDROCODONE/ACETAMINOPHEN 5-325 MG TABLET PO PRN ×4 (00:04→20:03)
[2020-06-06] MEDS: INSULIN LISPRO 100 UNITS/ML SQ PRN ×4 (00:29→17:51)
[2020-06-06 03:03] LABS: GLUCOSE,POINT OF CARE 236 MG/DL (70-110)
[2020-06-06 04:00] VITALS: BP 127/79
[2020-06-06 05:52] LABS: BASOPHILS % (AUTO) 0.4 % (0.0-2.0); EOSINOPHILS % (AUTO) 1.1 % (1.0-6.0); HEMATOCRIT 26.1 % (41-53); HEMOGLOBIN 8.3 g/dL (13.5-17.5); LYMPHOCYTES # (AUTO) 1.2 K/uL (1.0-4.8); LYMPHOCYTES % (AUTO) 11.6 % (22.0-44.0); MEAN CORPUSCULAR HGB CONC 31.7 G/dL (31.0-37.0); MEAN CORPUSCULAR VOLUME 95 fL (80-100); MONOCYTES # (AUTO) 0.6 K/uL (0.1-1.0); MONOCYTES % (AUTO) 6.3 % (2.0-9.0); NEUTROPHILS # (AUTO) 8.1 K/uL (1.8-7.7); NEUTROPHILS % (AUTO) 80.6 % (40.0-70.0); PLATELET COUNT (AUTO) 217 K/uL (150-450); RED BLOOD CELL COUNT(AUTO) 2.76 MIL/uL (4.50-5.90); RED CELL DISTRIBUTION WIDTH 18.2 % (11.5-14.5)
[2020-06-06 06:06] LABS: ALANINE AMINOTRANSFERASE 31 U/L (12-78); ALBUMIN 1.8 g/dL (3.4-5.0); ALKALINE PHOSPHATASE 371 U/L (46-116); ASPARTATE AMINOTRANSFERASE 32 U/L (15-37); BILIRUBIN,TOTAL 0.6 mg/dL (0.1-1.0); CALCIUM, TOTAL 8.6 mg/dL (8.8-10.5); CHLORIDE 101 mmol/L (98-107); CREATININE 0.22 mg/dL (0.60-1.30); GLOMERULAR FILTR. RATE CALC > 60 mL/min (>60); GLUCOSE,RANDOM 223 mg/dL (70-110); POTASSIUM 4.8 mmol/L (3.5-5.1); SODIUM SERUM 139 mmol/L (136-145); UREA NITROGEN, BLOOD 16 mg/dL (7-18)
[2020-06-06 06:17] LABS: ANION GAP -2 mmol/L (8-16); CARBON DIOXIDE 40 mmol/L (22-29)
[2020-06-06 06:55] LABS: GLUCOSE,POINT OF CARE 208 MG/DL (70-110)
[2020-06-06 08:00] VITALS: BP 133/79
[2020-06-06] MEDS: CHOLECALCIFEROL (VIT D3) 1,000 UNITS [25 MCG] TABLET GT SCH (08:50)
[2020-06-06] MEDS: SULFAMETHOX/TRIMETH DS 800-160 MG/TABLET PEG SCH ×2 (08:50→20:03)
[2020-06-06] MEDS: DIAZEPAM 5 MG TABLET GT SCH ×3 (08:50→20:03)
[2020-06-06] MEDS: ZINC SULFATE 220 MG CAPSULE PO SCH (08:50)
[2020-06-06] MEDS: LEVOFLOXACIN 750 MG TABLET GT SCH (08:50)
[2020-06-06] MEDS: MULTIVITAMINS WITH MINERALS, THERAPEUTIC TABLET PO SCH (08:50)
[2020-06-06] MEDS: ASCORBIC ACID 500 MG TABLET GT SCH (08:50)
[2020-06-06] MEDS: OMEPRAZOLE 20 MG CAPSULE GT SCH (08:50)
[2020-06-06] MEDS: ASPIRIN 81 MG CHEWABLE TABLET GT SCH (08:51)
[2020-06-06] MEDS: AMIODARONE HCL 200 MG TABLET PO SCH ×3 (08:51→20:03)
[2020-06-06] MEDS: METOPROLOL TARTRATE 25 MG TABLET GT SCH ×2 (08:52→20:03)
[2020-06-06] MEDS: DOCUSATE SODIUM 100 MG/10 ML LIQUID UDCUP GT SCH ×2 (08:52→20:03)
[2020-06-06] MEDS: SODIUM CHLORIDE 0.9% 1,000 ML IV SCH (08:59)
[2020-06-06 12:00] VITALS: BP 130/80
[2020-06-06] MEDS: LORazepam 2 MG/ML VIAL IVP PRN ×2 (12:10→18:43)
[2020-06-06] MEDS: MORPHINE SULFATE 2 MG/ML SYRINGE IVP PRN ×3 (12:10→19:55)
[2020-06-06 13:11] LABS: GLUCOSE,POINT OF CARE 207 MG/DL (70-110)
[2020-06-06 16:00] VITALS: BP 120/74
[2020-06-06] MEDS: FentaNYL 12 MCG/HOUR PATCH TD SCH (16:19)
[2020-06-06 18:28] LABS: GLUCOSE,POINT OF CARE 173 MG/DL (70-110)
[2020-06-06 20:00] VITALS: BP 146/86
[2020-06-06] MEDS: INSULIN GLARGINE,HUM.REC.ANLOG 100 UNITS/ML SQ SCH (20:04)
[2020-06-06 20:18] LABS: ABG A-A DIFF O2 550.7 mmHg (10-20.0); ABG BASE EXCESS 14.2 mmol/L (-2.0-3.0); ABG HCO3 35.7 mmol/L (22.0-26.0); ABG METHEMOGLOBIN 0.3 % (0.0-1.5); ABG OXYGEN CONTENT 11.2 mL/dL (15.0-23.0); ABG OXYHEMOGLOBIN 88.9 % (94.0-100.0); ABG PH 7.303 (7.35-7.450); ABG TOTAL HEMOGLOBIN 8.9 G/dL (12.0-18.0); PO2, ARTERIAL BG 74.2 mmHg (84.0-92.0); SOURCE, BLOOD GAS ARTERIAL; TEMPERATURE, FAHRENHEIT, BG 101.1 FAHREN (96.0-98.6)
[2020-06-06 20:19] LABS: ABG PCO2 84 mmHg (35-45); O2 DEVICE,BLOOD GAS VENTILATOR (ROOM AIR); SITE, BLOOD GAS RT RADIAL
[2020-06-06 20:20] LABS: PEEP,BG 12 cm H2O; VENT MODE, BG SIMV (ROOM AIR); VT, ABG 450 ml
[2020-06-06] MEDS: PROPOFOL 1000 MG/ISO-OSM 100 ML IV PRN (20:29)
[2020-06-06] MEDS: FentaNYL CITRATE PF 500 MCG in DEXTROSE 5%-WATER 90 ML IV PRN (21:03)
[2020-06-07] VITALS: BP 103/67
[2020-06-07] MEDS: INSULIN LISPRO 100 UNITS/ML SQ PRN ×4 (00:21→18:07)
[2020-06-07] MEDS: HEPARIN SODIUM,PORCINE 5,000 UNITS/ML VIAL SQ SCH ×4 (00:21→23:44)
[2020-06-07 02:04] LABS: GLUCOSE,POINT OF CARE 226 MG/DL (70-110)
[2020-06-07 02:04] LABS: GLUCOSE,POINT OF CARE 198 MG/DL (70-110)
[2020-06-07] MEDS: SODIUM CHLORIDE 0.9% 1,000 ML IV SCH (02:33)
[2020-06-07 04:00] VITALS: BP 128/78
[2020-06-07] MEDS: PROPOFOL 1000 MG/ISO-OSM 100 ML IV PRN ×3 (04:32→19:14)
[2020-06-07 06:35] LABS: GLUCOSE,POINT OF CARE 204 MG/DL (70-110)
[2020-06-07 08:00] VITALS: BP 111/61
[2020-06-07] MEDS: ZINC SULFATE 220 MG CAPSULE PO SCH (08:53)
[2020-06-07] MEDS: DIAZEPAM 5 MG TABLET GT SCH ×3 (08:53→20:17)
[2020-06-07] MEDS: ASPIRIN 81 MG CHEWABLE TABLET GT SCH (08:53)
[2020-06-07] MEDS: CHOLECALCIFEROL (VIT D3) 1,000 UNITS [25 MCG] TABLET GT SCH (08:53)
[2020-06-07] MEDS: SULFAMETHOX/TRIMETH DS 800-160 MG/TABLET PEG SCH ×2 (08:53→20:17)
[2020-06-07] MEDS: OMEPRAZOLE 20 MG CAPSULE GT SCH (08:53)
[2020-06-07] MEDS: MULTIVITAMINS WITH MINERALS, THERAPEUTIC TABLET PO SCH (08:53)
[2020-06-07] MEDS: LEVOFLOXACIN 750 MG TABLET GT SCH (08:53)
[2020-06-07] MEDS: DOCUSATE SODIUM 100 MG/10 ML LIQUID UDCUP GT SCH ×2 (08:54→20:17)
[2020-06-07] MEDS: METOPROLOL TARTRATE 25 MG TABLET GT SCH ×2 (08:54→20:17)
[2020-06-07] MEDS: ASCORBIC ACID 500 MG TABLET GT SCH (08:54)
[2020-06-07] MEDS: AMIODARONE HCL 200 MG TABLET PO SCH ×3 (08:54→20:17)
[2020-06-07 10:07] LABS: ABG A-A DIFF O2 550.4 mmHg (10-20.0); ABG CARBOXYHEMOGLOBIN 2.3 % (0.0-1.5); ABG HCO3 35.8 mmol/L (22.0-26.0); ABG METHEMOGLOBIN 0.3 % (0.0-1.5); ABG OXYGEN CONTENT 10.7 mL/dL (15.0-23.0); ABG OXYGEN SATURATION 94.5 % (95.0-98.0); ABG PH 7.321 (7.35-7.450); ABG TOTAL HEMOGLOBIN 8.2 G/dL (12.0-18.0); PO2, ARTERIAL BG 81.5 mmHg (84.0-92.0); SOURCE, BLOOD GAS ARTERIAL; TEMPERATURE, FAHRENHEIT, BG 99.6 FAHREN (96.0-98.6)
[2020-06-07 10:09] LABS: ABG PCO2 80 mmHg (35-45); O2 DEVICE,BLOOD GAS VENTILATOR (ROOM AIR); SITE, BLOOD GAS LFT RADIAL
[2020-06-07 10:10] LABS: PEEP,BG 8 cm H2O; PRESSURE SUPPORT, BG 15 cm H2O; SPONTANEOUS VT, BG 390 ml; VENT MODE, BG SIMV (ROOM AIR); VT, ABG 450 ml
[2020-06-07 12:00] VITALS: BP 97/61
[2020-06-07] MEDS: FentaNYL CITRATE PF 500 MCG in DEXTROSE 5%-WATER 90 ML IV PRN (12:13)
[2020-06-07 13:02] LABS: GLUCOSE,POINT OF CARE 197 MG/DL (70-110)
[2020-06-07 16:00] VITALS: BP 105/61
[2020-06-07 20:00] VITALS: BP 111/60
[2020-06-07 20:26] LABS: GLUCOSE,POINT OF CARE 184 MG/DL (70-110)
[2020-06-07] MEDS: INSULIN GLARGINE,HUM.REC.ANLOG 100 UNITS/ML SQ SCH (21:05)
[2020-06-08] VITALS: BP 105/61
[2020-06-08] MEDS: INSULIN LISPRO 100 UNITS/ML SQ PRN ×5 (00:03→23:59)
[2020-06-08 01:27] LABS: GLUCOSE,POINT OF CARE 205 MG/DL (70-110)
[2020-06-08 01:27] LABS: GLUCOSE,POINT OF CARE 180 MG/DL (70-110)
[2020-06-08 04:00] VITALS: BP 122/70
[2020-06-08] MEDS: FentaNYL CITRATE PF 500 MCG in DEXTROSE 5%-WATER 90 ML IV PRN ×2 (07:04→20:17)
[2020-06-08] MEDS: PROPOFOL 1000 MG/ISO-OSM 100 ML IV PRN ×3 (07:05→17:44)
[2020-06-08 08:00] VITALS: BP 117/69
[2020-06-08] MEDS: HEPARIN SODIUM,PORCINE 5,000 UNITS/ML VIAL SQ SCH ×2 (08:27→15:46)
[2020-06-08] MEDS: MULTIVITAMINS WITH MINERALS, THERAPEUTIC TABLET PO SCH (08:28)
[2020-06-08] MEDS: ASPIRIN 81 MG CHEWABLE TABLET GT SCH (08:28)
[2020-06-08] MEDS: AMIODARONE HCL 200 MG TABLET PO SCH ×3 (08:28→20:18)
[2020-06-08] MEDS: ZINC SULFATE 220 MG CAPSULE PO SCH (08:28)
[2020-06-08] MEDS: DOCUSATE SODIUM 100 MG/10 ML LIQUID UDCUP GT SCH ×2 (08:28→20:17)
[2020-06-08] MEDS: METOPROLOL TARTRATE 25 MG TABLET GT SCH ×2 (08:29→20:17)
[2020-06-08] MEDS: SULFAMETHOX/TRIMETH DS 800-160 MG/TABLET PEG SCH ×2 (08:29→20:17)
[2020-06-08] MEDS: ASCORBIC ACID 500 MG TABLET GT SCH (08:29)
[2020-06-08] MEDS: CHOLECALCIFEROL (VIT D3) 1,000 UNITS [25 MCG] TABLET GT SCH (08:29)
[2020-06-08] MEDS: DIAZEPAM 5 MG TABLET GT SCH ×3 (08:29→20:17)
[2020-06-08 08:30] LABS: GLUCOSE,POINT OF CARE 208 MG/DL (70-110)
[2020-06-08] MEDS: OMEPRAZOLE 20 MG CAPSULE GT SCH (08:30)
[2020-06-08] MEDS: LEVOFLOXACIN 750 MG TABLET GT SCH (08:30)
[2020-06-08 12:00] VITALS: BP 115/70
[2020-06-08 12:47] LABS: GLUCOSE,POINT OF CARE 202 MG/DL (70-110)
[2020-06-08] MEDS: ACETAMINOPHEN 325 MG TABLET PO PRN (13:40)
[2020-06-08 16:00] VITALS: BP 119/76
[2020-06-08 20:00] VITALS: BP 118/74
[2020-06-08] MEDS: INSULIN GLARGINE,HUM.REC.ANLOG 100 UNITS/ML SQ SCH (20:19)
[2020-06-08 20:36] LABS: GLUCOSE,POINT OF CARE 229 MG/DL (70-110)
[2020-06-08 23:59] LABS: GLUCOSE,POINT OF CARE 215 MG/DL (70-110)
[2020-06-09] VITALS: BP 111/66
[2020-06-09 00:43] LABS: GLUCOSE,POINT OF CARE 176 MG/DL (70-110)
[2020-06-09] MEDS: PROPOFOL 1000 MG/ISO-OSM 100 ML IV PRN ×3 (02:02→14:16)
[2020-06-09 04:00] VITALS: BP 112/62
[2020-06-09] MEDS: ACETAMINOPHEN 325 MG TABLET PO PRN ×2 (05:06→22:46)
[2020-06-09] MEDS: FentaNYL CITRATE PF 500 MCG in DEXTROSE 5%-WATER 90 ML IV PRN ×2 (05:06→18:10)
[2020-06-09 05:09] LABS: BASOPHILS % (AUTO) 0.4 % (0.0-2.0); EOSINOPHILS % (AUTO) 1.2 % (1.0-6.0); HEMATOCRIT 24.8 % (41-53); HEMOGLOBIN 7.9 g/dL (13.5-17.5); LYMPHOCYTES # (AUTO) 1.1 K/uL (1.0-4.8); LYMPHOCYTES % (AUTO) 9.7 % (22.0-44.0); MEAN CORPUSCULAR HEMOGLOBIN 30.2 pg (26.0-34.0); MEAN CORPUSCULAR HGB CONC 31.9 G/dL (31.0-37.0); MEAN CORPUSCULAR VOLUME 95 fL (80-100); MONOCYTES # (AUTO) 0.6 K/uL (0.1-1.0); MONOCYTES % (AUTO) 4.9 % (2.0-9.0); NEUTROPHILS # (AUTO) 9.9 K/uL (1.8-7.7); NEUTROPHILS % (AUTO) 83.8 % (40.0-70.0); PLATELET COUNT (AUTO) 202 K/uL (150-450); RED BLOOD CELL COUNT(AUTO) 2.62 MIL/uL (4.50-5.90); RED CELL DISTRIBUTION WIDTH 18.3 % (11.5-14.5)
[2020-06-09] MEDS: INSULIN LISPRO 100 UNITS/ML SQ PRN ×3 (05:19→18:45)
[2020-06-09 05:53] LABS: CALCIUM, TOTAL 9.3 mg/dL (8.8-10.5); CHLORIDE 100 mmol/L (98-107); CREATININE 0.37 mg/dL (0.60-1.30); GLOMERULAR FILTR. RATE CALC > 60 mL/min (>60); GLUCOSE,RANDOM 191 mg/dL (70-110); POTASSIUM 5.4 mmol/L (3.5-5.1); SODIUM SERUM 138 mmol/L (136-145); UREA NITROGEN, BLOOD 22 mg/dL (7-18)
[2020-06-09 05:58] LABS: ANION GAP -2 mmol/L (8-16); CARBON DIOXIDE 40 mmol/L (22-29)
[2020-06-09 07:07] LABS: GLUCOSE,POINT OF CARE 178 MG/DL (70-110)
[2020-06-09 08:00] VITALS: BP 130/73
[2020-06-09] MEDS: HEPARIN SODIUM,PORCINE 5,000 UNITS/ML VIAL SQ SCH ×3 (08:57→16:26)
[2020-06-09] MEDS: ZINC SULFATE 220 MG CAPSULE PO SCH (08:57)
[2020-06-09] MEDS: OMEPRAZOLE 20 MG CAPSULE GT SCH (08:57)
[2020-06-09] MEDS: LEVOFLOXACIN 750 MG TABLET GT SCH (08:57)
[2020-06-09] MEDS: DOCUSATE SODIUM 100 MG/10 ML LIQUID UDCUP GT SCH ×2 (08:57→21:17)
[2020-06-09] MEDS: MULTIVITAMINS WITH MINERALS, THERAPEUTIC TABLET PO SCH (08:58)
[2020-06-09] MEDS: METOPROLOL TARTRATE 25 MG TABLET GT SCH ×2 (08:58→21:17)
[2020-06-09] MEDS: SULFAMETHOX/TRIMETH DS 800-160 MG/TABLET PEG SCH ×2 (08:58→21:17)
[2020-06-09] MEDS: ASPIRIN 81 MG CHEWABLE TABLET GT SCH (08:58)
[2020-06-09] MEDS: DIAZEPAM 5 MG TABLET GT SCH ×3 (08:58→21:17)
[2020-06-09] MEDS: CHOLECALCIFEROL (VIT D3) 1,000 UNITS [25 MCG] TABLET GT SCH (08:58)
[2020-06-09] MEDS: AMIODARONE HCL 200 MG TABLET PO SCH ×3 (08:58→21:17)
[2020-06-09] MEDS: ASCORBIC ACID 500 MG TABLET GT SCH (08:58)
[2020-06-09 12:00] VITALS: BP 112/71
[2020-06-09 12:48] LABS: GLUCOSE,POINT OF CARE 159 MG/DL (70-110)
[2020-06-09 16:00] VITALS: BP 110/59
[2020-06-09] MEDS: HYDROCODONE/ACETAMINOPHEN 5-325 MG TABLET PO PRN (16:31)
[2020-06-09 20:00] VITALS: BP 95/53
[2020-06-09] MEDS: INSULIN GLARGINE,HUM.REC.ANLOG 100 UNITS/ML SQ SCH (21:00)
[2020-06-09 21:29] LABS: GLUCOSE,POINT OF CARE 147 MG/DL (70-110)
[2020-06-09 22:25] LABS: GLUCOSE,POINT OF CARE 141 MG/DL (70-110)
[2020-06-10] VITALS: BP 88/50
[2020-06-10] MEDS: HEPARIN SODIUM,PORCINE 5,000 UNITS/ML VIAL SQ SCH ×4 (00:14→23:33)
[2020-06-10] MEDS: PROPOFOL 1000 MG/ISO-OSM 100 ML IV PRN ×4 (00:15→21:11)
[2020-06-10] MEDS: FentaNYL CITRATE PF 500 MCG in DEXTROSE 5%-WATER 90 ML IV PRN ×3 (03:30→21:10)
[2020-06-10 04:00] VITALS: BP 108/52
[2020-06-10 06:10] LABS: GLUCOSE,POINT OF CARE 161 MG/DL (70-110)
[2020-06-10 06:10] LABS: GLUCOSE,POINT OF CARE 147 MG/DL (70-110)
[2020-06-10] MEDS: INSULIN LISPRO 100 UNITS/ML SQ PRN ×2 (06:28→11:46)
[2020-06-10 08:00] VITALS: BP 115/63
[2020-06-10] MEDS: METOPROLOL TARTRATE 25 MG TABLET GT SCH ×2 (08:04→21:57)
[2020-06-10] MEDS: LEVOFLOXACIN 750 MG TABLET GT SCH (08:04)
[2020-06-10] MEDS: ASCORBIC ACID 500 MG TABLET GT SCH (08:04)
[2020-06-10] MEDS: DOCUSATE SODIUM 100 MG/10 ML LIQUID UDCUP GT SCH ×2 (08:04→20:44)
[2020-06-10] MEDS: DIAZEPAM 5 MG TABLET GT SCH ×3 (08:04→21:09)
[2020-06-10] MEDS: CHOLECALCIFEROL (VIT D3) 1,000 UNITS [25 MCG] TABLET GT SCH (08:04)
[2020-06-10] MEDS: ZINC SULFATE 220 MG CAPSULE PO SCH (08:04)
[2020-06-10] MEDS: MULTIVITAMINS WITH MINERALS, THERAPEUTIC TABLET PO SCH (08:04)
[2020-06-10] MEDS: OMEPRAZOLE 20 MG CAPSULE GT SCH (08:04)
[2020-06-10] MEDS: SULFAMETHOX/TRIMETH DS 800-160 MG/TABLET PEG SCH ×2 (08:04→20:44)
[2020-06-10] MEDS: AMIODARONE HCL 200 MG TABLET PO SCH ×3 (08:05→20:44)
[2020-06-10] MEDS: ASPIRIN 81 MG CHEWABLE TABLET GT SCH (08:05)
[2020-06-10 09:04] LABS: EOSINOPHILS % (AUTO) 1.8 % (1.0-6.0); HEMATOCRIT 24.9 % (41-53); HEMOGLOBIN 8.2 g/dL (13.5-17.5); LYMPHOCYTES # (AUTO) 2.4 K/uL (1.0-4.8); LYMPHOCYTES % (AUTO) 13.4 % (22.0-44.0); MEAN CORPUSCULAR HEMOGLOBIN 31.3 pg (26.0-34.0); MEAN CORPUSCULAR HGB CONC 33.1 G/dL (31.0-37.0); MEAN CORPUSCULAR VOLUME 94 fL (80-100); MONOCYTES # (AUTO) 0.8 K/uL (0.1-1.0); MONOCYTES % (AUTO) 4.3 % (2.0-9.0); NEUTROPHILS # (AUTO) 14.1 K/uL (1.8-7.7); NEUTROPHILS % (AUTO) 79.5 % (40.0-70.0); PLATELET COUNT (AUTO) 226 K/uL (150-450); RED BLOOD CELL COUNT(AUTO) 2.64 MIL/uL (4.50-5.90); RED CELL DISTRIBUTION WIDTH 19.3 % (11.5-14.5)
[2020-06-10 09:16] LABS: ANION GAP -5 mmol/L (8-16); CHLORIDE 98 mmol/L (98-107); CREATININE 0.28 mg/dL (0.60-1.30); GLOMERULAR FILTR. RATE CALC > 60 mL/min (>60); GLUCOSE,RANDOM 170 mg/dL (70-110); POTASSIUM 5.4 mmol/L (3.5-5.1); SODIUM SERUM 137 mmol/L (136-145); UREA NITROGEN, BLOOD 25 mg/dL (7-18)
[2020-06-10 09:49] LABS: CARBON DIOXIDE 44 mmol/L (22-29)
[2020-06-10] MEDS ORDERED: SODIUM CHLORIDE 0.9% 1,000 ML ONE (11:02)
[2020-06-10] MEDS: ACETAMINOPHEN 325 MG TABLET PO PRN ×3 (11:54→23:33)
[2020-06-10 12:00] VITALS: BP 106/56
[2020-06-10 13:02] LABS: GLUCOSE,POINT OF CARE 174 MG/DL (70-110)
[2020-06-10 15:33] LABS: ABG A-A DIFF O2 595.9 mmHg (10-20.0); ABG BASE EXCESS 14.4 mmol/L (-2.0-3.0); ABG CARBOXYHEMOGLOBIN 3.1 % (0.0-1.5); ABG HCO3 36.3 mmol/L (22.0-26.0); ABG METHEMOGLOBIN 0.3 % (0.0-1.5); ABG OXYGEN CONTENT 9.3 mL/dL (15.0-23.0); ABG OXYGEN SATURATION 85.3 % (95.0-98.0); ABG OXYHEMOGLOBIN 82.4 % (94.0-100.0); ABG PCO2 61 mmHg (35-45); ABG PH 7.422 (7.35-7.450); PO2, ARTERIAL BG 54.7 mmHg (84.0-92.0); SOURCE, BLOOD GAS ARTERIAL; TEMPERATURE, FAHRENHEIT, BG 99.5 FAHREN (96.0-98.6)
[2020-06-10 15:35] LABS: O2 DEVICE,BLOOD GAS VENTILATOR (ROOM AIR); PEEP,BG 8 cm H2O; SITE, BLOOD GAS LFT RADIAL; VT, ABG 450 ml
[2020-06-10 16:00] VITALS: BP 100/52
[2020-06-10 18:30] LABS: GLUCOSE,POINT OF CARE 142 MG/DL (70-110)
[2020-06-10 20:00] VITALS: BP 93/49
[2020-06-10] MEDS: INSULIN GLARGINE,HUM.REC.ANLOG 100 UNITS/ML SQ SCH (20:45)
[2020-06-11] VITALS: BP 90/51
[2020-06-11] MEDS: INSULIN LISPRO 100 UNITS/ML SQ PRN ×5 (00:41→23:25)
[2020-06-11] MEDS: FentaNYL CITRATE PF 500 MCG in DEXTROSE 5%-WATER 90 ML IV PRN ×3 (02:53→22:39)
[2020-06-11] MEDS: PROPOFOL 1000 MG/ISO-OSM 100 ML IV PRN ×3 (02:53→22:42)
[2020-06-11 04:00] VITALS: BP 98/51
[2020-06-11 08:00] VITALS: BP 111/59
[2020-06-11] MEDS: CHOLECALCIFEROL (VIT D3) 1,000 UNITS [25 MCG] TABLET GT SCH (08:14)
[2020-06-11] MEDS: MULTIVITAMINS WITH MINERALS, THERAPEUTIC TABLET PO SCH (08:14)
[2020-06-11] MEDS: ASPIRIN 81 MG CHEWABLE TABLET GT SCH (08:14)
[2020-06-11] MEDS: DOCUSATE SODIUM 100 MG/10 ML LIQUID UDCUP GT SCH ×2 (08:14→20:14)
[2020-06-11] MEDS: OMEPRAZOLE 20 MG CAPSULE GT SCH (08:15)
[2020-06-11] MEDS: ZINC SULFATE 220 MG CAPSULE PO SCH (08:15)
[2020-06-11] MEDS: DIAZEPAM 5 MG TABLET GT SCH ×3 (08:15→20:17)
[2020-06-11] MEDS: LEVOFLOXACIN 750 MG TABLET GT SCH (08:15)
[2020-06-11] MEDS: HEPARIN SODIUM,PORCINE 5,000 UNITS/ML VIAL SQ SCH ×3 (08:15→23:24)
[2020-06-11] MEDS: SULFAMETHOX/TRIMETH DS 800-160 MG/TABLET PEG SCH ×2 (08:15→20:18)
[2020-06-11] MEDS: ASCORBIC ACID 500 MG TABLET GT SCH (08:15)
[2020-06-11] MEDS: AMIODARONE HCL 200 MG TABLET PO SCH ×3 (08:15→20:18)
[2020-06-11] MEDS: METOPROLOL TARTRATE 25 MG TABLET GT SCH ×2 (09:00→20:18)
[2020-06-11 12:00] VITALS: BP 108/60
[2020-06-11] MEDS: HYDROCODONE/ACETAMINOPHEN 5-325 MG TABLET PO PRN (14:30)
[2020-06-11 16:00] VITALS: BP 99/51
[2020-06-11 20:00] VITALS: BP 106/54
[2020-06-11] MEDS: INSULIN GLARGINE,HUM.REC.ANLOG 100 UNITS/ML SQ SCH (20:19)
[2020-06-11] MEDS: ACETAMINOPHEN 325 MG TABLET PO PRN (22:46)
[2020-06-12] VITALS: BP 96/47
[2020-06-12 04:00] VITALS: BP 101/55
[2020-06-12] MEDS: FentaNYL CITRATE PF 500 MCG in DEXTROSE 5%-WATER 90 ML IV PRN ×4 (05:22→23:41)
[2020-06-12] MEDS: INSULIN LISPRO 100 UNITS/ML SQ PRN ×3 (05:49→18:24)
[2020-06-12 08:00] VITALS: BP 105/53
[2020-06-12] MEDS: METOPROLOL TARTRATE 25 MG TABLET GT SCH ×2 (08:59→20:51)
[2020-06-12] MEDS: MULTIVITAMINS WITH MINERALS, THERAPEUTIC TABLET PO SCH (08:59)
[2020-06-12] MEDS: ASPIRIN 81 MG CHEWABLE TABLET GT SCH (08:59)
[2020-06-12] MEDS: OMEPRAZOLE 20 MG CAPSULE GT SCH (09:00)
[2020-06-12] MEDS: HEPARIN SODIUM,PORCINE 5,000 UNITS/ML VIAL SQ SCH ×3 (09:00→23:41)
[2020-06-12] MEDS: ZINC SULFATE 220 MG CAPSULE PO SCH (09:00)
[2020-06-12] MEDS: ASCORBIC ACID 500 MG TABLET GT SCH (09:00)
[2020-06-12] MEDS: AMIODARONE HCL 200 MG TABLET PO SCH ×3 (09:00→20:51)
[2020-06-12] MEDS: DIAZEPAM 5 MG TABLET GT SCH ×3 (09:00→20:51)
[2020-06-12] MEDS: LEVOFLOXACIN 750 MG TABLET GT SCH (09:00)
[2020-06-12] MEDS: CHOLECALCIFEROL (VIT D3) 1,000 UNITS [25 MCG] TABLET GT SCH (09:00)
[2020-06-12] MEDS: DOCUSATE SODIUM 100 MG/10 ML LIQUID UDCUP GT SCH ×2 (09:00→20:50)
[2020-06-12] MEDS: SULFAMETHOX/TRIMETH DS 800-160 MG/TABLET PEG SCH ×2 (09:00→20:51)
[2020-06-12] MEDS: PROPOFOL 1000 MG/ISO-OSM 100 ML IV PRN (10:36)
[2020-06-12 12:00] VITALS: BP 98/55
[2020-06-12 13:57] LABS: GLUCOSE,POINT OF CARE 197 MG/DL (70-110)
[2020-06-12 13:57] LABS: GLUCOSE,POINT OF CARE 145 MG/DL (70-110)
[2020-06-12 13:57] LABS: GLUCOSE,POINT OF CARE 185 MG/DL (70-110)
[2020-06-12 14:05] LABS: GLUCOSE,POINT OF CARE 181 MG/DL (70-110)
[2020-06-12 14:05] LABS: GLUCOSE,POINT OF CARE 162 MG/DL (70-110)
[2020-06-12 14:06] LABS: GLUCOSE,POINT OF CARE 170 MG/DL (70-110)
[2020-06-12 14:06] LABS: GLUCOSE,POINT OF CARE 197 MG/DL (70-110)
[2020-06-12 14:06] LABS: GLUCOSE,POINT OF CARE 230 MG/DL (70-110)
[2020-06-12 14:07] LABS: GLUCOSE,POINT OF CARE 165 MG/DL (70-110)
[2020-06-12] MEDS: ACETAMINOPHEN 325 MG TABLET PO PRN ×2 (15:52→20:51)
[2020-06-12 16:00] VITALS: BP 108/56
[2020-06-12] MEDS ORDERED: FUROSEMIDE 20 MG/2 ML VIAL IVP ONE ×2 (17:30→18:30)
[2020-06-12 20:00] VITALS: BP 99/48
[2020-06-12 20:58] LABS: GLUCOSE,POINT OF CARE 147 MG/DL (70-110)
[2020-06-12] MEDS: INSULIN GLARGINE,HUM.REC.ANLOG 100 UNITS/ML SQ SCH (21:36)
[2020-06-12 23:36] LABS: GLUCOSE,POINT OF CARE 174 MG/DL (70-110)
[2020-06-13] VITALS: BP 99/54
[2020-06-13] MEDS: PROPOFOL 1000 MG/ISO-OSM 100 ML IV PRN ×2 (00:06→12:23)
[2020-06-13] MEDS: INSULIN LISPRO 100 UNITS/ML SQ PRN ×4 (00:09→18:05)
[2020-06-13 01:25] LABS: GLUCOSE,POINT OF CARE 219 MG/DL (70-110)
[2020-06-13 04:00] VITALS: BP 104/55
[2020-06-13] MEDS: FentaNYL CITRATE PF 500 MCG in DEXTROSE 5%-WATER 90 ML IV PRN ×3 (05:29→19:49)
[2020-06-13 06:55] LABS: GLUCOSE,POINT OF CARE 232 MG/DL (70-110)
[2020-06-13 08:00] VITALS: BP 97/51
[2020-06-13] MEDS: HEPARIN SODIUM,PORCINE 5,000 UNITS/ML VIAL SQ SCH ×2 (08:00→16:19)
[2020-06-13] MEDS: ZINC SULFATE 220 MG CAPSULE PO SCH (09:00)
[2020-06-13] MEDS: AMIODARONE HCL 200 MG TABLET PO SCH ×3 (09:00→22:02)
[2020-06-13] MEDS: ASCORBIC ACID 500 MG TABLET GT SCH (09:00)
[2020-06-13] MEDS: DOCUSATE SODIUM 100 MG/10 ML LIQUID UDCUP GT SCH ×2 (09:00→22:03)
[2020-06-13] MEDS: METOPROLOL TARTRATE 25 MG TABLET GT SCH ×2 (09:00→22:02)
[2020-06-13] MEDS: SULFAMETHOX/TRIMETH DS 800-160 MG/TABLET PEG SCH ×2 (09:00→22:02)
[2020-06-13] MEDS: LEVOFLOXACIN 750 MG TABLET GT SCH (09:00)
[2020-06-13] MEDS: MULTIVITAMINS WITH MINERALS, THERAPEUTIC TABLET PO SCH (09:00)
[2020-06-13] MEDS: DIAZEPAM 5 MG TABLET GT SCH ×3 (09:00→22:02)
[2020-06-13] MEDS: OMEPRAZOLE 20 MG CAPSULE GT SCH (09:00)
[2020-06-13] MEDS: ASPIRIN 81 MG CHEWABLE TABLET GT SCH (09:00)
[2020-06-13] MEDS: CHOLECALCIFEROL (VIT D3) 1,000 UNITS [25 MCG] TABLET GT SCH (10:31)
[2020-06-13 12:00] VITALS: BP 91/51
[2020-06-13 15:27] LABS: GLUCOSE,POINT OF CARE 177 MG/DL (70-110)
[2020-06-13 16:00] VITALS: BP 99/54
[2020-06-13] MEDS: ACETAMINOPHEN 325 MG TABLET PO PRN (16:19)
[2020-06-13] MEDS ORDERED: MORPHINE SULFATE 2 MG/ML SYRINGE IVP PRN (19:30)
[2020-06-13 20:00] VITALS: BP 104/55
[2020-06-13] MEDS: INSULIN GLARGINE,HUM.REC.ANLOG 100 UNITS/ML SQ SCH (21:00)
[2020-06-13 21:29] LABS: GLUCOSE,POINT OF CARE 168 MG/DL (70-110)
[2020-06-14] VITALS (8 sets, daily range): BP systolic 47–128; BP diastolic 43–59
[2020-06-14 00:07] LABS: GLUCOSE,POINT OF CARE 198 MG/DL (70-110)
[2020-06-14] MEDS: HEPARIN SODIUM,PORCINE 5,000 UNITS/ML VIAL SQ SCH ×3 (00:33→15:46)
[2020-06-14] MEDS: INSULIN LISPRO 100 UNITS/ML SQ PRN ×3 (00:39→12:25)
[2020-06-14] MEDS: PROPOFOL 1000 MG/ISO-OSM 100 ML IV PRN ×3 (03:00→21:46)
[2020-06-14] MEDS: FentaNYL CITRATE PF 500 MCG in DEXTROSE 5%-WATER 90 ML IV PRN (03:35)
[2020-06-14 06:30] LABS: GLUCOSE,POINT OF CARE 206 MG/DL (70-110)
[2020-06-14 06:30] LABS: GLUCOSE,POINT OF CARE 203 MG/DL (70-110)
[2020-06-14] MEDS: MORPHINE SULFATE 2 MG/ML SYRINGE IVP PRN ×2 (08:18→22:15)
[2020-06-14] MEDS: DIAZEPAM 5 MG TABLET GT SCH ×3 (08:18→20:54)
[2020-06-14] MEDS: METOPROLOL TARTRATE 25 MG TABLET GT SCH ×2 (08:18→21:34)
[2020-06-14] MEDS: HYDROCODONE/ACETAMINOPHEN 5-325 MG TABLET PO PRN ×2 (08:19→22:30)
[2020-06-14] MEDS: LEVOFLOXACIN 750 MG TABLET GT SCH (08:19)
[2020-06-14] MEDS: ASPIRIN 81 MG CHEWABLE TABLET GT SCH (08:19)
[2020-06-14] MEDS: ASCORBIC ACID 500 MG TABLET GT SCH (08:19)
[2020-06-14] MEDS: OMEPRAZOLE 20 MG CAPSULE GT SCH (08:19)
[2020-06-14] MEDS: DOCUSATE SODIUM 100 MG/10 ML LIQUID UDCUP GT SCH ×2 (08:19→20:57)
[2020-06-14] MEDS: MULTIVITAMINS WITH MINERALS, THERAPEUTIC TABLET PO SCH (08:19)
[2020-06-14] MEDS: ZINC SULFATE 220 MG CAPSULE PO SCH (08:19)
[2020-06-14] MEDS: SULFAMETHOX/TRIMETH DS 800-160 MG/TABLET PEG SCH ×2 (08:19→20:53)
[2020-06-14] MEDS: AMIODARONE HCL 200 MG TABLET PO SCH ×3 (08:19→20:56)
[2020-06-14] MEDS: CHOLECALCIFEROL (VIT D3) 1,000 UNITS [25 MCG] TABLET GT SCH (08:19)
[2020-06-14] MEDS: FentaNYL 12 MCG/HOUR PATCH TD SCH (08:22)
[2020-06-14 14:03] LABS: GLUCOSE,POINT OF CARE 165 MG/DL (70-110)
[2020-06-14] MEDS: LORazepam 2 MG/ML VIAL IVP PRN (15:47)
[2020-06-14] MEDS: ACETAMINOPHEN 325 MG TABLET PO PRN (15:47)
[2020-06-14 19:53] LABS: GLUCOSE,POINT OF CARE 133 MG/DL (70-110)
[2020-06-14] MEDS: INSULIN GLARGINE,HUM.REC.ANLOG 100 UNITS/ML SQ SCH (20:50)
[2020-06-15] VITALS: BP 88/47
[2020-06-15 00:15] LABS: GLUCOSE,POINT OF CARE 159 MG/DL (70-110)
[2020-06-15] MEDS: HEPARIN SODIUM,PORCINE 5,000 UNITS/ML VIAL SQ SCH ×4 (00:29→23:57)
[2020-06-15] MEDS: INSULIN LISPRO 100 UNITS/ML SQ PRN ×4 (00:33→18:20)
[2020-06-15] MEDS: PROPOFOL 1000 MG/ISO-OSM 100 ML IV PRN ×5 (02:00→18:52)
[2020-06-15 03:48] LABS: GLUCOSE,POINT OF CARE 155 MG/DL (70-110)
[2020-06-15 04:00] VITALS: BP 87/47
[2020-06-15 08:00] VITALS: BP 93/52
[2020-06-15 08:06] LABS: GLUCOSE,POINT OF CARE 148 MG/DL (70-110)
[2020-06-15] MEDS: LEVOFLOXACIN 750 MG TABLET GT SCH (08:26)
[2020-06-15] MEDS: MULTIVITAMINS WITH MINERALS, THERAPEUTIC TABLET PO SCH (08:27)
[2020-06-15] MEDS: CHOLECALCIFEROL (VIT D3) 1,000 UNITS [25 MCG] TABLET GT SCH (08:27)
[2020-06-15] MEDS: SULFAMETHOX/TRIMETH DS 800-160 MG/TABLET PEG SCH ×2 (08:27→20:43)
[2020-06-15] MEDS: ASPIRIN 81 MG CHEWABLE TABLET GT SCH (08:27)
[2020-06-15] MEDS: OMEPRAZOLE 20 MG CAPSULE GT SCH (08:28)
[2020-06-15] MEDS: METOPROLOL TARTRATE 25 MG TABLET GT SCH ×2 (08:28→20:43)
[2020-06-15] MEDS: ZINC SULFATE 220 MG CAPSULE PO SCH (08:28)
[2020-06-15] MEDS: DOCUSATE SODIUM 100 MG/10 ML LIQUID UDCUP GT SCH ×2 (08:28→20:42)
[2020-06-15] MEDS: DIAZEPAM 5 MG TABLET GT SCH ×3 (08:28→20:43)
[2020-06-15] MEDS: ASCORBIC ACID 500 MG TABLET GT SCH (08:29)
[2020-06-15] MEDS: AMIODARONE HCL 200 MG TABLET PO SCH ×3 (08:29→20:43)
[2020-06-15 12:00] VITALS: BP 83/44
[2020-06-15 13:53] LABS: GLUCOSE,POINT OF CARE 186 MG/DL (70-110)
[2020-06-15 16:00] VITALS: BP 82/44
[2020-06-15] MEDS ORDERED: *CLINICAL-MEROPENEM DOSING CLINICAL ONE (16:00)
[2020-06-15] MEDS: HYDROCODONE/ACETAMINOPHEN 5-325 MG TABLET PO PRN (18:01)
[2020-06-15 19:14] LABS: GLUCOSE,POINT OF CARE 190 MG/DL (70-110)
[2020-06-15 20:00] VITALS: BP 101/46
[2020-06-15] MEDS: INSULIN GLARGINE,HUM.REC.ANLOG 100 UNITS/ML SQ SCH (20:46)
[2020-06-15 22:44] LABS: GLUCOSE,POINT OF CARE 183 MG/DL (70-110)
[2020-06-16] VITALS (10 sets, daily range): BP systolic 95–106; BP diastolic 48–57
[2020-06-16] MEDS: PROPOFOL 1000 MG/ISO-OSM 100 ML IV PRN ×2 (00:41→06:38)
[2020-06-16 00:57] LABS: GLUCOSE,POINT OF CARE 191 MG/DL (70-110)
[2020-06-16 03:07] LABS: GLUCOSE,POINT OF CARE 110 MG/DL (70-110)
[2020-06-16] MEDS: INSULIN LISPRO 100 UNITS/ML SQ PRN ×4 (05:44→18:26)
[2020-06-16] MEDS: HYDROCODONE/ACETAMINOPHEN 5-325 MG TABLET PO PRN ×2 (07:35→17:19)
[2020-06-16 08:01] LABS: GLUCOSE,POINT OF CARE 183 MG/DL (70-110)
[2020-06-16] MEDS: ASPIRIN 81 MG CHEWABLE TABLET GT SCH (08:07)
[2020-06-16] MEDS: DOCUSATE SODIUM 100 MG/10 ML LIQUID UDCUP GT SCH ×2 (08:07→20:01)
[2020-06-16] MEDS: LEVOFLOXACIN 750 MG TABLET GT SCH (08:08)
[2020-06-16] MEDS: AMIODARONE HCL 200 MG TABLET PO SCH ×3 (08:08→20:01)
[2020-06-16] MEDS: OMEPRAZOLE 20 MG CAPSULE GT SCH (08:08)
[2020-06-16] MEDS: SULFAMETHOX/TRIMETH DS 800-160 MG/TABLET PEG SCH ×2 (08:08→20:01)
[2020-06-16] MEDS: ZINC SULFATE 220 MG CAPSULE PO SCH (08:08)
[2020-06-16] MEDS: DIAZEPAM 5 MG TABLET GT SCH ×3 (08:08→20:01)
[2020-06-16] MEDS: MULTIVITAMINS WITH MINERALS, THERAPEUTIC TABLET PO SCH (08:09)
[2020-06-16] MEDS: CHOLECALCIFEROL (VIT D3) 1,000 UNITS [25 MCG] TABLET GT SCH (08:09)
[2020-06-16] MEDS: HEPARIN SODIUM,PORCINE 5,000 UNITS/ML VIAL SQ SCH ×2 (08:09→16:03)
[2020-06-16] MEDS: ASCORBIC ACID 500 MG TABLET GT SCH (08:09)
[2020-06-16] MEDS: METOPROLOL TARTRATE 25 MG TABLET GT SCH ×2 (08:09→20:01)
[2020-06-16] MEDS: LORazepam 2 MG/ML VIAL IVP PRN ×3 (13:31→20:01)
[2020-06-16 16:22] LABS: GLUCOSE,POINT OF CARE 194 MG/DL (70-110)
[2020-06-16 17:04] LABS: HEMATOCRIT 22.6 % (41-53); MEAN CORPUSCULAR VOLUME 94 fL (80-100); PLATELET COUNT (AUTO) 201 K/uL (150-450); RED BLOOD CELL COUNT(AUTO) 2.41 MIL/uL (4.50-5.90); RED CELL DISTRIBUTION WIDTH 20.7 % (11.5-14.5)
[2020-06-16 17:25] LABS: ANION GAP 3 mmol/L (8-16); CALCIUM, TOTAL 8.3 mg/dL (8.8-10.5); CARBON DIOXIDE 36 mmol/L (22-29); CHLORIDE 92 mmol/L (98-107); CREATININE 0.53 mg/dL (0.60-1.30); GLOMERULAR FILTR. RATE CALC > 60 mL/min (>60); GLUCOSE,RANDOM 195 mg/dL (70-110); POTASSIUM 5.5 mmol/L (3.5-5.1); SODIUM SERUM 131 mmol/L (136-145); UREA NITROGEN, BLOOD 63 mg/dL (7-18)
[2020-06-16 17:32] LABS: ALANINE AMINOTRANSFERASE 23 U/L (12-78); ALBUMIN 1.5 g/dL (3.4-5.0); ALKALINE PHOSPHATASE 308 U/L (46-116); ASPARTATE AMINOTRANSFERASE 44 U/L (15-37); BILIRUBIN,TOTAL 0.7 mg/dL (0.1-1.0); TOTAL PROTEIN, SERUM 7.2 g/dL (6.4-8.2)
[2020-06-16 17:50] LABS: BAND NEUTROPHILS % (MANUAL) 2 % (0-5); BASOPHILS % (MANUAL) 1 % (0-2); EOSINOPHILS % (MANUAL) 2 % (1-6); LYMPHOCYTES % (MANUAL) 11 % (22-44); METAMYELOCYTES % 2 % (0-0); MONOCYTES % (MANUAL) 5 % (2-9); MYELOCYTES % 2 % (0-0); SEGMENTED NEUTROPHILS % 75 % (40-70)
[2020-06-16] MEDS ORDERED: SODIUM CHLORIDE 0.9% 250 ML IV ONE (18:20)
[2020-06-16] MEDS: CefTAZidime PENTAHYDRATE 2 GM in DEXTROSE 5%-WATER 50 ML IV SCH (18:20)
[2020-06-16 18:37] LABS: GLUCOSE,POINT OF CARE 174 MG/DL (70-110)
[2020-06-16] MEDS: INSULIN GLARGINE,HUM.REC.ANLOG 100 UNITS/ML SQ SCH (19:59)
[2020-06-16] MEDS: FentaNYL 12 MCG/HOUR PATCH TD SCH (20:00)
[2020-06-16] MEDS: ACETAMINOPHEN 325 MG TABLET PO PRN (21:59)
[2020-06-17] VITALS (8 sets, daily range): BP systolic 91–110; BP diastolic 50–60
[2020-06-17] MEDS: HYDROCODONE/ACETAMINOPHEN 5-325 MG TABLET PO PRN ×2 (00:22→12:33)
[2020-06-17] MEDS: HEPARIN SODIUM,PORCINE 5,000 UNITS/ML VIAL SQ SCH ×4 (00:22→23:12)
[2020-06-17] MEDS: INSULIN LISPRO 100 UNITS/ML SQ PRN ×5 (01:02→22:23)
[2020-06-17] MEDS: CefTAZidime PENTAHYDRATE 2 GM in DEXTROSE 5%-WATER 50 ML IV SCH ×3 (02:12→17:32)
[2020-06-17] MEDS: LORazepam 2 MG/ML VIAL IVP PRN ×4 (03:37→23:12)
[2020-06-17 05:10] LABS: GLUCOSE,POINT OF CARE 202 MG/DL (70-110)
[2020-06-17 05:10] LABS: GLUCOSE,POINT OF CARE 172 MG/DL (70-110)
[2020-06-17] MEDS: MULTIVITAMINS WITH MINERALS, THERAPEUTIC TABLET PO SCH (08:20)
[2020-06-17] MEDS: DIAZEPAM 5 MG TABLET GT SCH ×3 (08:20→21:25)
[2020-06-17] MEDS: OMEPRAZOLE 20 MG CAPSULE GT SCH (08:20)
[2020-06-17] MEDS: ASCORBIC ACID 500 MG TABLET GT SCH (08:20)
[2020-06-17] MEDS: CHOLECALCIFEROL (VIT D3) 1,000 UNITS [25 MCG] TABLET GT SCH (08:20)
[2020-06-17] MEDS: ASPIRIN 81 MG CHEWABLE TABLET GT SCH (08:20)
[2020-06-17] MEDS: SULFAMETHOX/TRIMETH DS 800-160 MG/TABLET PEG SCH ×2 (08:20→21:24)
[2020-06-17] MEDS: METOPROLOL TARTRATE 25 MG TABLET GT SCH ×2 (08:20→21:24)
[2020-06-17] MEDS: ZINC SULFATE 220 MG CAPSULE PO SCH (08:20)
[2020-06-17] MEDS: AMIODARONE HCL 200 MG TABLET PO SCH ×3 (08:20→21:25)
[2020-06-17] MEDS: DOCUSATE SODIUM 100 MG/10 ML LIQUID UDCUP GT SCH ×2 (08:21→21:25)
[2020-06-17 08:30] LABS: GLUCOSE,POINT OF CARE 226 MG/DL (70-110)
[2020-06-17] MEDS ORDERED: SODIUM CHLORIDE 0.9% 100 ML ONE (10:30)
[2020-06-17] MEDS ORDERED: IOVERSOL 350 MG/ML 100 ML VIAL ONE (10:30)
[2020-06-17 15:59] LABS: GLUCOSE,POINT OF CARE 214 MG/DL (70-110)
[2020-06-17 17:53] LABS: GLUCOSE,POINT OF CARE 235 MG/DL (70-110)
[2020-06-17] MEDS: ACETAMINOPHEN 325 MG TABLET PO PRN (21:25)
[2020-06-17] MEDS: INSULIN GLARGINE,HUM.REC.ANLOG 100 UNITS/ML SQ SCH (22:23)
[2020-06-18] VITALS: BP 94/48
[2020-06-18] MEDS: HYDROCODONE/ACETAMINOPHEN 5-325 MG TABLET PO PRN ×3 (00:28→18:27)
[2020-06-18] MEDS: INSULIN LISPRO 100 UNITS/ML SQ PRN ×4 (00:46→18:01)
[2020-06-18] MEDS ORDERED: SODIUM CHLORIDE 0.9% 250 ML IV ONE (00:51)
[2020-06-18 01:01] LABS: GLUCOSE,POINT OF CARE 231 MG/DL (70-110)
[2020-06-18 01:01] LABS: GLUCOSE,POINT OF CARE 204 MG/DL (70-110)
[2020-06-18] MEDS: CefTAZidime PENTAHYDRATE 2 GM in DEXTROSE 5%-WATER 50 ML IV SCH ×3 (01:30→17:18)
[2020-06-18] MEDS: ACETAMINOPHEN 325 MG TABLET PO PRN (01:47)
[2020-06-18 04:00] VITALS: BP 97/55
[2020-06-18 08:00] VITALS: BP 105/59
[2020-06-18 08:34] LABS: GLUCOSE,POINT OF CARE 209 MG/DL (70-110)
[2020-06-18] MEDS ORDERED: MULTIVITAMINS, THERAPEUTIC 15 ML UDCUP PEG SCH (09:00)
[2020-06-18] MEDS: DOCUSATE SODIUM 100 MG/10 ML LIQUID UDCUP GT SCH ×2 (09:44→21:28)
[2020-06-18] MEDS: HEPARIN SODIUM,PORCINE 5,000 UNITS/ML VIAL SQ SCH ×2 (09:44→16:01)
[2020-06-18] MEDS: ZINC SULFATE 220 MG CAPSULE PO SCH (09:44)
[2020-06-18] MEDS: ASPIRIN 81 MG CHEWABLE TABLET GT SCH (09:44)
[2020-06-18] MEDS: CHOLECALCIFEROL (VIT D3) 1,000 UNITS [25 MCG] TABLET GT SCH (09:44)
[2020-06-18] MEDS: SULFAMETHOX/TRIMETH DS 800-160 MG/TABLET PEG SCH ×2 (09:45→21:28)
[2020-06-18] MEDS: OMEPRAZOLE 20 MG CAPSULE GT SCH (09:45)
[2020-06-18] MEDS: AMIODARONE HCL 200 MG TABLET PO SCH ×3 (09:45→21:27)
[2020-06-18] MEDS: DIAZEPAM 5 MG TABLET GT SCH ×3 (09:46→21:27)
[2020-06-18] MEDS: ASCORBIC ACID 500 MG TABLET GT SCH (09:46)
[2020-06-18] MEDS: METOPROLOL TARTRATE 25 MG TABLET GT SCH ×2 (09:46→21:00)
[2020-06-18 12:00] VITALS: BP 102/60
[2020-06-18 14:30] VITALS: BP 94/52
[2020-06-18 19:30] LABS: GLUCOSE,POINT OF CARE 230 MG/DL (70-110)
[2020-06-18 19:39] VITALS: BP 107/52
[2020-06-18] MEDS: INSULIN GLARGINE,HUM.REC.ANLOG 100 UNITS/ML SQ SCH (21:34)
[2020-06-19 10:03] LABS: GLUCOMETER DEV NAME(LOC) 5N.1; GLUCOSE,POINT OF CARE 229 MG/DL (70-110)
[2020-06-19 10:03] LABS: GLUCOMETER DEV NAME(LOC) 5N.1; GLUCOSE,POINT OF CARE 227 MG/DL (70-110)
== END 2020-06-18 23:32 | disposition expired | DRG 130 ==
LOC: EMS 19:41 → ICU 23:00 → 5N 06-18 14:10
PROVIDERS: ADMIT Internal Medicine; ATTEND Internal Medicine
PROC: 5A1955Z Respiratory Ventilation, Greater than 96 Consecutive Hours (ICD-10-PCS; principal; 2020-05-28)
PROC: 05HY33Z Insertion of Infusion Device into Upper Vein, Percutaneous Approach (ICD-10-PCS; 2020-06-03)
PROC: B54NZZA Ultrasonography of Left Upper Extremity Veins, Guidance (ICD-10-PCS; 2020-06-03)
DX: U07.1 COVID-19 (principal); J96.01 Acute respiratory failure with hypoxia; J12.89 Other viral pneumonia; E43 Unspecified severe protein-calorie malnutrition; I82.411 Acute embolism and thrombosis of right femoral vein; J98.2 Interstitial emphysema; Z93.0 Tracheostomy status; N17.9 Acute kidney failure, unspecified; D68.59 Other primary thrombophilia; E11.9 Type 2 diabetes mellitus without complications; E87.1 Hypo-osmolality and hyponatremia; E87.6 Hypokalemia; I48.91 Unspecified atrial fibrillation; K62.6 Ulcer of anus and rectum; K74.60 Unspecified cirrhosis of liver; L89.159 Pressure ulcer of sacral region, unspecified stage; Z99.11 Dependence on respirator [ventilator] status; Z95.828 Presence of other vascular implants and grafts; J96.02 Acute respiratory failure with hypercapnia; E87.2 Acidosis; D50.0 Iron deficiency anemia secondary to blood loss (chronic); B96.20 Unspecified Escherichia coli [E. coli] as the cause of diseases classified elsewhere; Z66 Do not resuscitate; Z79.4 Long term (current) use of insulin; Z68.34 Body mass index [BMI] 34.0-34.9, adult; G93.40 Encephalopathy, unspecified; Z87.820 Personal history of traumatic brain injury; D72.829 Elevated white blood cell count, unspecified; K92.2 Gastrointestinal hemorrhage, unspecified; J47.9 Bronchiectasis, uncomplicated
CPT/HCPCS: 36569; 36600; 71275; 76937; 82805; 83735; 85379; 87040; 87070; 87081; 87086; 87205; 93005; 94002; 94003; 94644; G0378; J0456; J0696; J0713; J1644; J1815; J1940; J2060; J2270; J2704; J3010; J7030; J7050; J7060; J7120; 36415-L1; 36415-TC; 71045-TC; J7611